=== PATIENT | male | born 1955 | race Caucasian/White ===

== ENCOUNTER 2021-09-07 08:53 | Inpatient (IN) ==
[2021-09-07 09:21] LABS: Basophils % 0.1 % (0.0-0.8); Hematocrit 48.2 VOL% (42.0-52.0); Hemoglobin 16.1 GM/DL (14.0-18.0); Immature Granulocytes % 0.5 %; Immature Granulocytes Absolute 0.08 #; Lymphocytes # 1.1 10*3/uL (1.4-4.0); Lymphocytes % 6.1 % (21.2-54.2); Mean Corpuscular HGB Conc 33.4 GM/DL (32-36); Mean Corpuscular Volume 96.2 FL (87-102); Mean Platelet Volume 8.8 FL (9.6-12.0); Monocytes % 4.5 % (1.7-12.7); Neutrophils % 88.8 % (38.7-73.9); Platelet Count 270 T/CUMM (130-400); Red Blood Count 5.01 MC/CUMM (3.8-5.5); Red Cell Distribution Width 12.7 % (9.3-17.3); White Blood Count 17.2 T/CUMM (4-12)
[2021-09-07 09:56] LABS: Albumin 4.6 G/DL (3.4-5.0); Calcium 9.7 MG/DL (8.5-10.1); Osmolality,Calculated 281.1 MOS/KG (273-304); Potassium 4.6 MMOL/L (3.5-5.1); Total Protein 8.2 G/DL (6.4-8.2)
[2021-09-07] MEDS ORDERED: ENOXAPARIN 100 MG/ML SYRINGE SUBCUT STA (11:11)
[2021-09-07] MEDS ORDERED: MORPHINE 2 MG/1 ML SYRINGE IV STA (11:11)
[2021-09-07] MEDS ORDERED: ASPIRIN 325 MG TABLET PO STA (11:11)
[2021-09-07] MEDS ORDERED: NITROGLYCERIN SL 0.4 MG TABLET SL PRN (11:11)
[2021-09-07] MEDS ORDERED: ONDANSETRON 4 MG/2 ML VIAL ONE (11:15)
[2021-09-07] MEDS ORDERED: HEPARIN 1,000 UNIT/1 ML VIAL IV STA (11:21)
[2021-09-07] MEDS ORDERED: ONDANSETRON 4 MG/2 ML VIAL IV STA (11:25)
[2021-09-07] MEDS ORDERED: cefTRIAXone 1,000 MG in SODIUM CHLORIDE 0.9% 100 ML IV STA (11:25)
[2021-09-07] MEDS ORDERED: cefTRIAXone 1,000 MG VIAL ONE (11:26)
[2021-09-07] MEDS ORDERED: HEPARIN 5,000 UNIT/1 ML VIAL ONE ×3 (11:26→12:02)
[2021-09-07] MEDS ORDERED: CLOPIDOGREL 300 MG TABLET PO STA (11:33)
[2021-09-07] MEDS ORDERED: CLOPIDOGREL 300 MG TABLET ONE (11:34)
[2021-09-07] MEDS ORDERED: HEPARIN/NACL 0.9% 2 UNITS/ML 2,000 UNIT/1,000 ML BAG IV ONE (11:35)
[2021-09-07] MEDS ORDERED: LIDOCAINE 1% 20 ML VIAL ONE (11:35)
[2021-09-07] MEDS ORDERED: hydrALAZINE 20 MG/1 ML VIAL IV PRN (11:47)
[2021-09-07] MEDS ORDERED: POTASSIUM CHLORIDE RIDER 10 MEQ/100 ML PREMIX IV PRN (11:47)
[2021-09-07] MEDS ORDERED: ONDANSETRON 4 MG/2 ML VIAL IV PRN (11:47)
[2021-09-07] MEDS ORDERED: ACETAMINOPHEN 325 MG TABLET PO PRN (11:47)
[2021-09-07] MEDS ORDERED: diphenhydrAMINE CAP 25 MG CAPSULE PO PRN (11:47)
[2021-09-07] MEDS ORDERED: MAGNESIUM SULF RIDER 4 GM/100 ML PREMIX IV PRN (11:47)
[2021-09-07] MEDS ORDERED: ZALEPLON 5 MG CAPSULE PO PRN (11:47)
[2021-09-07] MEDS ORDERED: ALUMINUM/MAGNES/SIMETH MAX STR 30 ML UDCUP PO PRN (11:47)
[2021-09-07] MEDS ORDERED: MAGNESIUM SULF RIDER 2 GM/50 ML PREMIX IV PRN ×2 (11:47)
[2021-09-07] MEDS ORDERED: guaiFENesin/DM ER 600-30 MG TABLET PO PRN (11:47)
[2021-09-07] MEDS ORDERED: NICOTINE 21 MG/24 HR PATCH TRANSDERM PRN (11:47)
[2021-09-07] MEDS ORDERED: PROMETHAZINE 25 MG TABLET PO PRN (11:47)
[2021-09-07] MEDS ORDERED: DOCUSATE SODIUM 100 MG CAPSULE PO PRN (11:47)
[2021-09-07] MEDS ORDERED: MORPHINE 2 MG/1 ML SYRINGE IV PRN (11:47)
[2021-09-07] MEDS ORDERED: NITROGLYCERIN DRIP 50 MG/250 ML BOTTLE IV ONE (11:50)
[2021-09-07] MEDS ORDERED: methylPREDNISolone SOD SUC 125 MG/2 ML VIAL ONE (11:50)
[2021-09-07] MEDS ORDERED: diphenhydrAMINE 50 MG/1 ML VIAL ONE (11:50)
[2021-09-07] MEDS ORDERED: FAMOTIDINE 20 MG/2 ML VIAL IV ONE (11:55)
[2021-09-07] MEDS ORDERED: MIDAZOLAM 2 MG/2 ML VIAL ONE (11:56)
[2021-09-07] MEDS ORDERED: fentaNYL 100 MCG/2 ML VIAL ONE (11:56)
[2021-09-07] MEDS ORDERED: HEPARIN/NACL 0.9% 2 UNITS/ML 1,000 UNIT/500 ML BAG IV ONE (12:06)
[2021-09-07] MEDS ORDERED: AZITHROMYCIN 250 MG TABLET PO ONE (12:07)
[2021-09-07] MEDS ORDERED: ALBUTEROL/IPRATROPIUM 3 ML NEB RESP TX PRN (12:07)
[2021-09-07] MEDS ORDERED: EPTIFIBATIDE 75 MG/100 ML BOTTLE IV SCH (12:15)
[2021-09-07] MEDS ORDERED: NOREPINEPHRINE 4 MG/4 ML VIAL IV ONE ×2 (12:30→12:32)
[2021-09-07] MEDS ORDERED: EPTIFIBATIDE 75 MG/100 ML BOTTLE IV ONE (12:30)
[2021-09-07] MEDS ORDERED: EPTIFIBATIDE 20,000 MCG/10 ML VIAL ONE (12:30)
[2021-09-07] MEDS ORDERED: FUROSEMIDE 40 MG/4 ML VIAL ONE (12:35)
[2021-09-07] MEDS ORDERED: NITROPRUSSIDE 50 MG/2 ML VIAL ONE (12:47)
[2021-09-07 13:09] LABS: Bilirubin,Urine Negative (Negative); Blood, Urine Negative (Negative); Glucose,Urine (UA) Negative (Negative); Hyaline Casts,Urine 85 /LPF (0-3); Ketones,Urine 5 mg/dL (Negative); Mucus,Urine Few /LPF (Occasional); Nitrite,Urine Negative (Negative); Protein,Urine Negative; RBC,Urine 1 /HPF (0-4); Urine Appearance Slightly Hazy (Clear); Urine Color Yellow (Yellow); Urine Specific Gravity 1.031 (1.001-1.035); Urine Urobilinogen < 2.0 EU/DL (0.2-1.0)
[2021-09-07] MEDS: SODIUM CHLORIDE 0.45% 1,000 ML IV SCH ×3 (14:30→21:16)
[2021-09-07] MEDS: ATORVASTATIN 40 MG TABLET PO SCH (21:17)
[2021-09-08] MEDS: SODIUM CHLORIDE 0.45% 1,000 ML IV SCH (03:13)
[2021-09-08 06:35] LABS: Basophils % 0.1 % (0.0-0.8); Hematocrit 42.5 VOL% (42.0-52.0); Hemoglobin 14.4 GM/DL (14.0-18.0); Immature Granulocytes % 0.9 %; Immature Granulocytes Absolute 0.23 #; Lymphocytes # 0.9 10*3/uL (1.4-4.0); Lymphocytes % 3.5 % (21.2-54.2); Mean Corpuscular HGB Conc 33.9 GM/DL (32-36); Mean Platelet Volume 9.7 FL (9.6-12.0); Monocytes % 7.1 % (1.7-12.7); Neutrophils % 88.4 % (38.7-73.9); Platelet Count 217 T/CUMM (130-400); Red Blood Count 4.38 MC/CUMM (3.8-5.5); Red Cell Distribution Width 12.8 % (9.3-17.3); White Blood Count 26.9 T/CUMM (4-12)
[2021-09-08 07:05] LABS: Anisocytosis Slight; Band Neutrophils 9 % (0-10); Lymphocytes 10 % (20-55); Platelet Estimate Normal; Segmented Neutrophils 74 % (50-85); Total Cells Counted 100
[2021-09-08 07:16] LABS: Albumin 3.1 G/DL (3.4-5.0); CKMB % 15.4 %; Calcium 8.4 MG/DL (8.5-10.1); Osmolality,Calculated 278.1 MOS/KG (273-304); Potassium 4.3 MMOL/L (3.5-5.1); Risk Ratio 4.59; Thyroid Stimulating Hormone 1.13 uIU/ml (0.358-3.74); Total Protein 6.4 G/DL (6.4-8.2); VLDL Cholesterol 30.8 MG/DL
[2021-09-08 07:20] LABS: High Sensitive Troponin I* 92981.8 ng/L (0-78)
[2021-09-08] MEDS: ASPIRIN EC 81 MG TABLET PO SCH (08:48)
[2021-09-08] MEDS: TICAGRELOR 90 MG TABLET PO SCH ×2 (08:48→20:49)
[2021-09-08] MEDS: FUROSEMIDE 40 MG/4 ML VIAL IV SCH ×2 (08:48→18:00)
[2021-09-08] MEDS: PANTOPRAZOLE 40 MG TABLET PO SCH (08:48)
[2021-09-08] MEDS ORDERED: AZITHROMYCIN 250 MG TABLET PO SCH (09:00)
[2021-09-08 09:28] LABS: ABG Base Excess 0.2 MMOL/L (-2.5-2.5); ABG HCO3 24.5 MMOL/L (20-26); ABG Oxygen Saturation 92.6 % (95-100); ABG PCO2 33.8 MM HG (35-48); ABG PH 7.449 (7.35-7.45); ABG PO2 66.4 MM HG (80-95); ABG TCO2 19.9 MMOL/L (23-27)
[2021-09-08] MEDS: methylPREDNISolone SOD SUC 40 MG/1 ML VIAL IV SCH ×3 (11:15→23:17)
[2021-09-08] MEDS: cefTRIAXone 2,000 MG in SODIUM CHLORIDE 0.9% 100 ML IV SCH (11:15)
[2021-09-08] MEDS: AZITHROMYCIN INJ 500 MG in SODIUM CHLORIDE 0.9% 250 ML IV SCH (11:45)
[2021-09-08 11:46] LABS: HIV Antigen/Antibody Result Nonreactive (Nonreactive)
[2021-09-08] MEDS: ATORVASTATIN 40 MG TABLET PO SCH (20:49)
[2021-09-09] MEDS: methylPREDNISolone SOD SUC 40 MG/1 ML VIAL IV SCH ×4 (05:46→22:52)
[2021-09-09 06:04] LABS: Basophils % 0.1 % (0.0-0.8); Hematocrit 38.6 VOL% (42.0-52.0); Hemoglobin 12.9 GM/DL (14.0-18.0); Immature Granulocytes % 0.9 %; Immature Granulocytes Absolute 0.19 #; Lymphocytes # 0.7 10*3/uL (1.4-4.0); Lymphocytes % 3.3 % (21.2-54.2); Mean Corpuscular HGB Conc 33.4 GM/DL (32-36); Mean Corpuscular Volume 97.2 FL (87-102); Monocytes % 5.2 % (1.7-12.7); Neutrophils % 90.5 % (38.7-73.9); Platelet Count 176 T/CUMM (130-400); Red Blood Count 3.97 MC/CUMM (3.8-5.5); Red Cell Distribution Width 12.4 % (9.3-17.3); White Blood Count 21.4 T/CUMM (4-12)
[2021-09-09 06:27] LABS: Band Neutrophils 2 % (0-10); Lymphocytes 4 % (20-55); Platelet Estimate Normal; Segmented Neutrophils 93 % (50-85); Total Cells Counted 100
[2021-09-09 06:43] LABS: CKMB % 5.5 %; Calcium 8.9 MG/DL (8.5-10.1); Osmolality,Calculated 280.2 MOS/KG (273-304); Potassium 3.9 MMOL/L (3.5-5.1)
[2021-09-09 06:44] LABS: High Sensitive Troponin I* 43401.7 ng/L (0-78)
[2021-09-09 07:44] LABS: Bilirubin,Direct 0.22 MG/DL (0.0-0.20); Bilirubin,Indirect 0.8 MG/DL (0.0-1.0); Total Protein 6.5 G/DL (6.4-8.2)
[2021-09-09] MEDS: TICAGRELOR 90 MG TABLET PO SCH ×2 (08:22→20:42)
[2021-09-09] MEDS: PANTOPRAZOLE 40 MG TABLET PO SCH (08:22)
[2021-09-09] MEDS: ASPIRIN EC 81 MG TABLET PO SCH (08:22)
[2021-09-09] MEDS: FUROSEMIDE 40 MG/4 ML VIAL IV SCH (08:23)
[2021-09-09] MEDS: cefTRIAXone 2,000 MG in SODIUM CHLORIDE 0.9% 100 ML IV SCH (11:22)
[2021-09-09] MEDS: POTASSIUM CHLORIDE 20 MEQ TABLET PO PRN (11:24)
[2021-09-09] MEDS: AZITHROMYCIN INJ 500 MG in SODIUM CHLORIDE 0.9% 250 ML IV SCH (11:54)
[2021-09-09 13:36] LABS: Mycoplasma pneumoniae Ab Inter SEE COMMENTS; Mycoplasma pneumoniae Ab, IgG Positive (Negative); Mycoplasma pneumoniae Ab, IgM Negative (Negative)
[2021-09-09] MEDS: ATORVASTATIN 40 MG TABLET PO SCH (20:42)
[2021-09-10 03:44] LABS: Basophils % 0.1 % (0.0-0.8); Hematocrit 37.2 VOL% (42.0-52.0); Hemoglobin 12.5 GM/DL (14.0-18.0); Immature Granulocytes Absolute 0.18 #; Lymphocytes # 0.7 10*3/uL (1.4-4.0); Lymphocytes % 3.9 % (21.2-54.2); Mean Corpuscular HGB Conc 33.6 GM/DL (32-36); Mean Corpuscular Volume 98.2 FL (87-102); Mean Platelet Volume 9.9 FL (9.6-12.0); Monocytes % 5.7 % (1.7-12.7); Neutrophils % 89.3 % (38.7-73.9); Platelet Count 174 T/CUMM (130-400); Red Blood Count 3.79 MC/CUMM (3.8-5.5); Red Cell Distribution Width 12.6 % (9.3-17.3); White Blood Count 18.3 T/CUMM (4-12)
[2021-09-10 04:07] LABS: Band Neutrophils 2 % (0-10); Lymphocytes 4 % (20-55); Segmented Neutrophils 89 % (50-85); Total Cells Counted 100
[2021-09-10 04:08] LABS: Macrocytosis Slight; Platelet Estimate Adequate
[2021-09-10 04:11] LABS: CKMB % 3.4 %; Calcium 8.7 MG/DL (8.5-10.1); Osmolality,Calculated 286.8 MOS/KG (273-304); Potassium 3.9 MMOL/L (3.5-5.1)
[2021-09-10 04:13] LABS: High Sensitive Troponin I* 26710.7 ng/L (0-78)
[2021-09-10] MEDS: methylPREDNISolone SOD SUC 40 MG/1 ML VIAL IV SCH ×3 (04:49→20:45)
[2021-09-10] MEDS: METOPROLOL TARTRATE 25 MG TABLET PO SCH ×2 (09:52→20:44)
[2021-09-10] MEDS: ASPIRIN EC 81 MG TABLET PO SCH (09:52)
[2021-09-10] MEDS: PANTOPRAZOLE 40 MG TABLET PO SCH (09:53)
[2021-09-10] MEDS: ISOSORBIDE MONONITRATE 30 MG TABLET PO SCH (09:53)
[2021-09-10] MEDS: TICAGRELOR 90 MG TABLET PO SCH ×2 (09:53→20:44)
[2021-09-10] MEDS: CETIRIZINE 10 MG TABLET PO SCH (09:53)
[2021-09-10] MEDS ORDERED: FUROSEMIDE 40 MG/4 ML VIAL IV ONE (10:05)
[2021-09-10] MEDS: POTASSIUM CHLORIDE 20 MEQ TABLET PO PRN (11:13)
[2021-09-10] MEDS: cefTRIAXone 2,000 MG in SODIUM CHLORIDE 0.9% 100 ML IV SCH (11:16)
[2021-09-10] MEDS: AZITHROMYCIN INJ 500 MG in SODIUM CHLORIDE 0.9% 250 ML IV SCH (11:52)
[2021-09-10] MEDS: ATORVASTATIN 40 MG TABLET PO SCH (20:44)
[2021-09-11 05:00] LABS: ABG HCO3 26.1 MMOL/L (20-26); ABG Oxygen Saturation 90.2 % (95-100); ABG PCO2 33.1 MM HG (35-48); ABG PH 7.485 (7.35-7.45); ABG PO2 61.3 MM HG (80-95); ABG TCO2 22.1 MMOL/L (23-27); Allen Test Positive
[2021-09-11 07:12] LABS: Basophils % 0.1 % (0.0-0.8); Hematocrit 35.7 VOL% (42.0-52.0); Hemoglobin 11.8 GM/DL (14.0-18.0); Immature Granulocytes % 0.9 %; Immature Granulocytes Absolute 0.15 #; Lymphocytes # 0.8 10*3/uL (1.4-4.0); Lymphocytes % 4.6 % (21.2-54.2); Mean Corpuscular HGB Conc 33.1 GM/DL (32-36); Mean Corpuscular Volume 97.8 FL (87-102); Mean Platelet Volume 10.4 FL (9.6-12.0); Monocytes % 5.7 % (1.7-12.7); Neutrophils % 88.7 % (38.7-73.9); Platelet Count 199 T/CUMM (130-400); Red Blood Count 3.65 MC/CUMM (3.8-5.5); Red Cell Distribution Width 12.7 % (9.3-17.3); White Blood Count 16.6 T/CUMM (4-12)
[2021-09-11 07:42] LABS: CKMB % 3.2 %; Calcium 8.5 MG/DL (8.5-10.1); High Sensitive Troponin I* 17170.1 ng/L (0-78); Potassium 3.4 MMOL/L (3.5-5.1)
[2021-09-11] MEDS ORDERED: POTASSIUM CHLORIDE 20 MEQ TABLET PO ONE (07:46)
[2021-09-11 07:57] LABS: Lymphocytes 5 % (20-55); Segmented Neutrophils 89 % (50-85); Total Cells Counted 100
[2021-09-11 07:58] LABS: Platelet Estimate Adequate
[2021-09-11] MEDS: APIXABAN 5 MG TABLET PO SCH ×2 (10:04→20:09)
[2021-09-11] MEDS: METOPROLOL TARTRATE 25 MG TABLET PO SCH ×2 (10:04→20:08)
[2021-09-11] MEDS: ASPIRIN EC 81 MG TABLET PO SCH (10:04)
[2021-09-11] MEDS: TICAGRELOR 90 MG TABLET PO SCH ×2 (10:04→20:08)
[2021-09-11] MEDS: ISOSORBIDE MONONITRATE 30 MG TABLET PO SCH (10:05)
[2021-09-11] MEDS: CETIRIZINE 10 MG TABLET PO SCH (10:05)
[2021-09-11] MEDS: PANTOPRAZOLE 40 MG TABLET PO SCH (10:05)
[2021-09-11] MEDS: methylPREDNISolone SOD SUC 40 MG/1 ML VIAL IV SCH (10:08)
[2021-09-11] MEDS: MEROPENEM 500 MG in SODIUM CHLORIDE 0.9% 100 ML IV SCH ×3 (10:09→20:09)
[2021-09-11] MEDS: AZITHROMYCIN INJ 500 MG in SODIUM CHLORIDE 0.9% 250 ML IV SCH (11:30)
[2021-09-11 12:26] LABS: Fungitell Quantitative Value < 31 pg/mL (<60 pg/mL)
[2021-09-11] MEDS: predniSONE 20 MG TABLET PO SCH (15:12)
[2021-09-11] MEDS: ATORVASTATIN 40 MG TABLET PO SCH (20:08)
[2021-09-12] MEDS: MEROPENEM 500 MG in SODIUM CHLORIDE 0.9% 100 ML IV SCH ×4 (02:36→22:09)
[2021-09-12] MEDS: PANTOPRAZOLE 40 MG TABLET PO SCH (08:51)
[2021-09-12] MEDS: TICAGRELOR 90 MG TABLET PO SCH ×2 (08:51→22:08)
[2021-09-12] MEDS: ISOSORBIDE MONONITRATE 30 MG TABLET PO SCH (08:51)
[2021-09-12] MEDS: CETIRIZINE 10 MG TABLET PO SCH (08:51)
[2021-09-12] MEDS: APIXABAN 5 MG TABLET PO SCH ×2 (08:52→22:08)
[2021-09-12] MEDS: METOPROLOL TARTRATE 25 MG TABLET PO SCH ×2 (08:52→22:09)
[2021-09-12] MEDS: predniSONE 20 MG TABLET PO SCH (08:52)
[2021-09-12] MEDS: POTASSIUM CHLORIDE 20 MEQ TABLET PO PRN ×3 (08:52→17:54)
[2021-09-12] MEDS: ASPIRIN EC 81 MG TABLET PO SCH (08:52)
[2021-09-12] MEDS: CLORAZEPATE 3.75 MG TABLET PO PRN ×2 (10:39→17:55)
[2021-09-12] MEDS: AZITHROMYCIN INJ 500 MG in SODIUM CHLORIDE 0.9% 250 ML IV SCH (10:40)
[2021-09-12] MEDS: ATORVASTATIN 40 MG TABLET PO SCH (22:08)
[2021-09-12] MEDS: SERTRALINE 25 MG TABLET PO SCH (22:09)
[2021-09-13] MEDS: CLORAZEPATE 3.75 MG TABLET PO PRN (02:31)
[2021-09-13] MEDS: MEROPENEM 500 MG in SODIUM CHLORIDE 0.9% 100 ML IV SCH ×3 (05:00→15:58)
[2021-09-13] MEDS: predniSONE 5 MG TABLET PO SCH (09:35)
[2021-09-13] MEDS: PANTOPRAZOLE 40 MG TABLET PO SCH (09:35)
[2021-09-13] MEDS: TICAGRELOR 90 MG TABLET PO SCH (09:35)
[2021-09-13] MEDS: APIXABAN 5 MG TABLET PO SCH (09:35)
[2021-09-13] MEDS: ASPIRIN EC 81 MG TABLET PO SCH (09:35)
[2021-09-13] MEDS: ISOSORBIDE MONONITRATE 30 MG TABLET PO SCH (09:35)
[2021-09-13] MEDS: METOPROLOL TARTRATE 25 MG TABLET PO SCH (09:35)
[2021-09-13] MEDS: CETIRIZINE 10 MG TABLET PO SCH (09:35)
[2021-09-13] MEDS: AZITHROMYCIN INJ 500 MG in SODIUM CHLORIDE 0.9% 250 ML IV SCH (10:28)
[2021-09-13] MEDS ORDERED: MELATONIN 3 MG TABLET PO SCH (21:00)
[2021-09-14] MEDS: ATORVASTATIN 40 MG TABLET PO SCH (00:08)
[2021-09-14] MEDS: APIXABAN 5 MG TABLET PO SCH ×2 (00:08→08:01)
[2021-09-14] MEDS: METOPROLOL TARTRATE 25 MG TABLET PO SCH ×2 (00:08→08:01)
[2021-09-14] MEDS: SERTRALINE 25 MG TABLET PO SCH (00:08)
[2021-09-14] MEDS: TICAGRELOR 90 MG TABLET PO SCH ×2 (00:08→08:02)
[2021-09-14] MEDS: MEROPENEM 500 MG in SODIUM CHLORIDE 0.9% 100 ML IV SCH ×3 (00:09→08:07)
[2021-09-14 06:31] LABS: Basophils % 0.1 % (0.0-0.8); Eosinophils % 0.1 % (0.00-10.9); Hematocrit 34.4 VOL% (42.0-52.0); Hemoglobin 11.3 GM/DL (14.0-18.0); Immature Granulocytes % 1.8 %; Immature Granulocytes Absolute 0.35 #; Lymphocytes # 1.1 10*3/uL (1.4-4.0); Lymphocytes % 5.7 % (21.2-54.2); Mean Corpuscular HGB Conc 32.8 GM/DL (32-36); Mean Corpuscular Volume 98.6 FL (87-102); Monocytes % 3.1 % (1.7-12.7); Neutrophils % 89.2 % (38.7-73.9); Platelet Count 203 T/CUMM (130-400); Red Blood Count 3.49 MC/CUMM (3.8-5.5); White Blood Count 19.7 T/CUMM (4-12)
[2021-09-14 06:59] LABS: Blood Urea Nitrogen 25 MG/DL (7-18); Calcium 8.3 MG/DL (8.5-10.1); Carbon Dioxide 23 MMOL/L (21-32); Estimated Glom Filtration Rate 105 ML/MIN; Glucose 122 MG/DL (74-106); Potassium 3.8 MMOL/L (3.5-5.1); Sodium 136 MMOL/L (136-145)
[2021-09-14] MEDS: ISOSORBIDE MONONITRATE 30 MG TABLET PO SCH (08:01)
[2021-09-14] MEDS: CETIRIZINE 10 MG TABLET PO SCH (08:01)
[2021-09-14] MEDS: ASPIRIN EC 81 MG TABLET PO SCH (08:02)
[2021-09-14] MEDS: predniSONE 5 MG TABLET PO SCH (08:02)
[2021-09-14] MEDS: PANTOPRAZOLE 40 MG TABLET PO SCH (08:02)
[2021-09-14] MEDS: AZITHROMYCIN INJ 500 MG in SODIUM CHLORIDE 0.9% 250 ML IV SCH (10:39)
[2021-09-14 12:42] VITALS: BP 111/93
[2021-09-16 14:28] LABS: Histo/Blasto PCR Result Negative; Histo/Blasto Source SPUTUM
[2021-09-16 15:46] LABS: Histoplasma Immnodiffusion Negative (Negative)
[2021-09-17 10:10] LABS: Alternaria tenuis/alternat IgG <2.0 mcg/mL (<12.0); Aspergillus fumigatus IgG 23.1 mcg/mL (<46.0); Aureobasidium pullulans IgG <2.0 mcg/mL (<18.0); Micropolyspora faeni IgG <2.0 mcg/mL (<5.0); Penicillium Chrysogenum IgG 19.5 mcg/mL (<22.0); Phoma betae IgG 5.6 mcg/mL (<8.0); Thermoactinomyces vulgaris IgG 3.7 mcg/mL (<13.0)
== END 2021-09-14 13:30 | disposition home health service (06) | DRG 246 ==
LOC: N.ED 08:53 → N.ICU 11:42 → N.EDINP 11:47 → N.ICU 14:02 → N.TELES 09-09 14:51
PROVIDERS: ADMIT Internal Medicine Cardiovascular Disease; ATTEND Internal Medicine Cardiovascular Disease
PROC: CLCCHCL (ICD-10-PCS; 2021-09-07 12:00)

== ENCOUNTER 2021-09-17 01:20 | Inpatient (IN) ==
[2021-09-17 01:47] LABS: Basophils % 0.2 % (0.0-0.8); Eosinophils # 0.1 10*3/uL (0.0-0.87); Eosinophils % 0.2 % (0.00-10.9); Hematocrit 38.4 VOL% (42.0-52.0); Hemoglobin 12.2 GM/DL (14.0-18.0); Immature Granulocytes % 1.9 %; Immature Granulocytes Absolute 0.51 #; Lymphocytes # 1.1 10*3/uL (1.4-4.0); Lymphocytes % 4.3 % (21.2-54.2); Mean Corpuscular HGB Conc 31.8 GM/DL (32-36); Mean Corpuscular Volume 101.3 FL (87-102); Mean Platelet Volume 9.6 FL (9.6-12.0); Monocytes % 4.3 % (1.7-12.7); Neutrophils % 89.1 % (38.7-73.9); Platelet Count 349 T/CUMM (130-400); Red Blood Count 3.79 MC/CUMM (3.8-5.5); Red Cell Distribution Width 13.2 % (9.3-17.3); White Blood Count 26.4 T/CUMM (4-12)
[2021-09-17] MEDS ORDERED: methylPREDNISolone SOD SUC 125 MG/2 ML VIAL IV STA (01:48)
[2021-09-17] MEDS ORDERED: MORPHINE 2 MG/1 ML SYRINGE IV STA (01:48)
[2021-09-17] MEDS ORDERED: ALBUTEROL/IPRATROPIUM 3 ML NEB RESP TX STA (01:48)
[2021-09-17] MEDS ORDERED: FUROSEMIDE 100 MG/10 ML VIAL IV STA (01:48)
[2021-09-17 02:05] LABS: ABG Base Excess -4.1 MMOL/L (-2.5-2.5); ABG HCO3 20.8 MMOL/L (20-26); ABG Oxygen Saturation 84.7 % (95-100); ABG PCO2 34.6 MM HG (35-48); ABG PH 7.378 (7.35-7.45); ABG PO2 55.9 MM HG (80-95)
[2021-09-17 02:11] LABS: INR 1.3; PT Patient Result 14.3 SECS (10.5-12.0)
[2021-09-17 02:22] LABS: Albumin 2.6 G/DL (3.4-5.0); Bilirubin,Total 1.2 MG/DL (0.20-1.00); Calcium 8.2 MG/DL (8.5-10.1); Lymphocytes 11 % (20-55); Osmolality,Calculated 293.3 MOS/KG (273-304); Platelet Estimate Normal; Potassium 4.5 MMOL/L (3.5-5.1); Segmented Neutrophils 86 % (50-85); Total Cells Counted 100; Total Protein 5.4 G/DL (6.4-8.2)
[2021-09-17] MEDS ORDERED: MORPHINE 2 MG/1 ML SYRINGE IV PRN (02:53)
[2021-09-17] MEDS ORDERED: ACETAMINOPHEN 325 MG TABLET PO PRN (02:53)
[2021-09-17] MEDS ORDERED: GLUCAGON 1 MG VIAL IM PRN (02:53)
[2021-09-17] MEDS ORDERED: DEXTROSE 50% 25 GM/50 ML SYRINGE IV PRN (02:53)
[2021-09-17] MEDS ORDERED: MAGNESIUM SULF RIDER 2 GM/50 ML PREMIX IV PRN (02:53)
[2021-09-17] MEDS ORDERED: ONDANSETRON 4 MG/2 ML VIAL IV PRN (02:53)
[2021-09-17] MEDS ORDERED: DEXTROSE 50% 25 GM/50 ML VIAL IV PRN (02:53)
[2021-09-17] MEDS ORDERED: MAGNESIUM SULF RIDER 4 GM/100 ML PREMIX IV PRN (02:53)
[2021-09-17] MEDS ORDERED: MEROPENEM 1,000 MG VIAL IV SCH (07:00)
[2021-09-17] MEDS: ALBUTEROL/IPRATROPIUM 3 ML NEB RESP TX SCH ×3 (07:15→19:10)
[2021-09-17] MEDS ORDERED: INSULIN REGULAR 100 UNIT/ML SUBCUT SCH (07:30)
[2021-09-17] MEDS ORDERED: FUROSEMIDE 40 MG/4 ML VIAL IV SCH ×2 (08:00→16:00)
[2021-09-17] MEDS ORDERED: CETIRIZINE 10 MG TABLET PO SCH (09:00)
[2021-09-17] MEDS ORDERED: predniSONE 5 MG TABLET PO SCH (09:00)
[2021-09-17] MEDS: PANTOPRAZOLE 40 MG TABLET PO SCH (09:38)
[2021-09-17] MEDS: ASPIRIN CHEW 81 MG TABLET PO SCH (09:38)
[2021-09-17] MEDS: ISOSORBIDE MONONITRATE 30 MG TABLET PO SCH (09:38)
[2021-09-17] MEDS: TICAGRELOR 90 MG TABLET PO SCH ×2 (09:38→20:10)
[2021-09-17] MEDS: APIXABAN 5 MG TABLET PO SCH ×2 (09:39→20:10)
[2021-09-17] MEDS: predniSONE 20 MG TABLET PO SCH (09:39)
[2021-09-17] MEDS: METOPROLOL TARTRATE 25 MG TABLET PO SCH ×2 (09:45→20:09)
[2021-09-17] MEDS: MEROPENEM 500 MG in SODIUM CHLORIDE 0.9% 100 ML IV SCH ×3 (10:18→20:31)
[2021-09-17] MEDS ORDERED: FUROSEMIDE 40 MG/4 ML VIAL IV ONE (11:01)
[2021-09-17] MEDS: FUROSEMIDE 40 MG/4 ML VIAL IV SCH (16:08)
[2021-09-17] MEDS: ATORVASTATIN 40 MG TABLET PO SCH (20:09)
[2021-09-17] MEDS: SERTRALINE 25 MG TABLET PO SCH (20:10)
[2021-09-18] MEDS: ALBUTEROL/IPRATROPIUM 3 ML NEB RESP TX SCH ×4 (00:29→19:48)
[2021-09-18] MEDS: MEROPENEM 500 MG in SODIUM CHLORIDE 0.9% 100 ML IV SCH ×4 (03:54→20:44)
[2021-09-18 05:10] LABS: Basophils % 0.1 % (0.0-0.8); Hematocrit 32.6 VOL% (42.0-52.0); Hemoglobin 10.6 GM/DL (14.0-18.0); Lymphocytes # 1.1 10*3/uL (1.4-4.0); Lymphocytes % 5.5 % (21.2-54.2); Mean Corpuscular HGB Conc 32.5 GM/DL (32-36); Mean Corpuscular Volume 98.8 FL (87-102); Mean Platelet Volume 9.7 FL (9.6-12.0); Monocytes % 4.6 % (1.7-12.7); Neutrophils % 88.8 % (38.7-73.9); Platelet Count 274 T/CUMM (130-400); Red Cell Distribution Width 13.2 % (9.3-17.3); White Blood Count 20.1 T/CUMM (4-12)
[2021-09-18 05:36] LABS: Hypochromasia Slight; Lymphocytes 7 % (20-55); Microcytosis Slight; Platelet Estimate Adequate; Segmented Neutrophils 89 % (50-85); Total Cells Counted 100
[2021-09-18 05:38] LABS: Albumin 2.4 G/DL (3.4-5.0); Bilirubin,Total 1.2 MG/DL (0.20-1.00); Osmolality,Calculated 289.4 MOS/KG (273-304); Potassium 3.6 MMOL/L (3.5-5.1); Total Protein 5.6 G/DL (6.4-8.2)
[2021-09-18] MEDS: ASPIRIN CHEW 81 MG TABLET PO SCH (08:39)
[2021-09-18] MEDS: APIXABAN 5 MG TABLET PO SCH ×2 (08:40→20:42)
[2021-09-18] MEDS: TICAGRELOR 90 MG TABLET PO SCH ×2 (08:40→20:42)
[2021-09-18] MEDS: PANTOPRAZOLE 40 MG TABLET PO SCH (08:40)
[2021-09-18] MEDS: predniSONE 20 MG TABLET PO SCH (08:40)
[2021-09-18] MEDS: ISOSORBIDE MONONITRATE 30 MG TABLET PO SCH (08:40)
[2021-09-18] MEDS: METOPROLOL TARTRATE 25 MG TABLET PO SCH ×2 (08:41→20:42)
[2021-09-18] MEDS: FUROSEMIDE 40 MG/4 ML VIAL IV SCH (08:41)
[2021-09-18] MEDS: FUROSEMIDE 40 MG TABLET PO SCH (16:53)
[2021-09-18] MEDS: ATORVASTATIN 40 MG TABLET PO SCH (20:42)
[2021-09-18] MEDS: SERTRALINE 25 MG TABLET PO SCH (20:42)
[2021-09-19] MEDS: ALBUTEROL/IPRATROPIUM 3 ML NEB RESP TX SCH ×5 (01:11→23:45)
[2021-09-19] MEDS: MEROPENEM 500 MG in SODIUM CHLORIDE 0.9% 100 ML IV SCH ×4 (03:19→20:49)
[2021-09-19 05:19] LABS: Basophils % 0.1 % (0.0-0.8); Eosinophils % 0.3 % (0.00-10.9); Hematocrit 32.6 VOL% (42.0-52.0); Hemoglobin 10.3 GM/DL (14.0-18.0); Immature Granulocytes % 0.8 %; Immature Granulocytes Absolute 0.13 #; Lymphocytes # 1.7 10*3/uL (1.4-4.0); Lymphocytes % 10.5 % (21.2-54.2); Mean Corpuscular HGB Conc 31.6 GM/DL (32-36); Mean Corpuscular Volume 101.2 FL (87-102); Mean Platelet Volume 9.4 FL (9.6-12.0); Monocytes % 5.5 % (1.7-12.7); Neutrophils % 82.8 % (38.7-73.9); Platelet Count 254 T/CUMM (130-400); Red Blood Count 3.22 MC/CUMM (3.8-5.5); Red Cell Distribution Width 13.2 % (9.3-17.3); White Blood Count 15.9 T/CUMM (4-12)
[2021-09-19 05:38] LABS: Osmolality,Calculated 285.5 MOS/KG (273-304); Potassium 3.6 MMOL/L (3.5-5.1)
[2021-09-19] MEDS ORDERED: POTASSIUM CHLORIDE 20 MEQ TABLET PO ONE (08:17)
[2021-09-19] MEDS: TICAGRELOR 90 MG TABLET PO SCH ×2 (08:51→20:48)
[2021-09-19] MEDS: FUROSEMIDE 40 MG TABLET PO SCH (08:51)
[2021-09-19] MEDS: APIXABAN 5 MG TABLET PO SCH ×2 (08:51→20:48)
[2021-09-19] MEDS: METOPROLOL TARTRATE 25 MG TABLET PO SCH ×2 (08:51→20:48)
[2021-09-19] MEDS: predniSONE 20 MG TABLET PO SCH (08:51)
[2021-09-19] MEDS: ISOSORBIDE MONONITRATE 30 MG TABLET PO SCH (08:51)
[2021-09-19] MEDS: PANTOPRAZOLE 40 MG TABLET PO SCH (08:51)
[2021-09-19] MEDS: ASPIRIN CHEW 81 MG TABLET PO SCH (08:51)
[2021-09-19] MEDS ORDERED: FUROSEMIDE 40 MG/4 ML VIAL IV ONE (09:18)
[2021-09-19] MEDS: ASCORBIC ACID 500 MG TABLET PO SCH ×2 (09:26→20:48)
[2021-09-19] MEDS: FUROSEMIDE 40 MG/4 ML VIAL IV SCH (16:42)
[2021-09-19] MEDS ORDERED: ALBUTEROL 2.5 MG/3 ML NEB RESP TX ONE (19:48)
[2021-09-19] MEDS ORDERED: IPRATROPIUM 500 MCG/2.5 ML NEB RESP TX ONE (19:48)
[2021-09-19] MEDS: ATORVASTATIN 40 MG TABLET PO SCH (20:48)
[2021-09-19] MEDS: SERTRALINE 25 MG TABLET PO SCH (20:48)
[2021-09-20] MEDS: ALBUTEROL/IPRATROPIUM 3 ML NEB RESP TX SCH ×3 (10:15→20:44)
[2021-09-20 13:30] LABS: Basophils % 0.1 % (0.0-0.8); Eosinophils # 0.1 10*3/uL (0.0-0.87); Eosinophils % 0.5 % (0.00-10.9); Hematocrit 34.4 VOL% (42.0-52.0); Immature Granulocytes % 0.7 %; Immature Granulocytes Absolute 0.11 #; Lymphocytes # 1.9 10*3/uL (1.4-4.0); Lymphocytes % 11.9 % (21.2-54.2); Mean Corpuscular Volume 102.1 FL (87-102); Mean Platelet Volume 9.6 FL (9.6-12.0); Monocytes % 5.7 % (1.7-12.7); Neutrophils % 81.1 % (38.7-73.9); Platelet Count 271 T/CUMM (130-400); Red Blood Count 3.37 MC/CUMM (3.8-5.5); Red Cell Distribution Width 13.3 % (9.3-17.3); White Blood Count 15.5 T/CUMM (4-12)
[2021-09-20 14:09] LABS: Calcium 8.2 MG/DL (8.5-10.1); Osmolality,Calculated 289.3 MOS/KG (273-304); Potassium 4.3 MMOL/L (3.5-5.1)
[2021-09-20] MEDS: FUROSEMIDE 40 MG/4 ML VIAL IV SCH ×2 (16:12→20:01)
[2021-09-20] MEDS: MEROPENEM 500 MG in SODIUM CHLORIDE 0.9% 100 ML IV SCH ×2 (20:01→21:42)
[2021-09-20] MEDS: predniSONE 20 MG TABLET PO SCH (20:02)
[2021-09-20] MEDS: TICAGRELOR 90 MG TABLET PO SCH ×2 (20:02→21:43)
[2021-09-20] MEDS: METOPROLOL TARTRATE 25 MG TABLET PO SCH ×2 (20:02→21:43)
[2021-09-20] MEDS: ASPIRIN CHEW 81 MG TABLET PO SCH (20:02)
[2021-09-20] MEDS: APIXABAN 5 MG TABLET PO SCH ×2 (20:02→21:43)
[2021-09-20] MEDS: PANTOPRAZOLE 40 MG TABLET PO SCH (20:02)
[2021-09-20] MEDS: ISOSORBIDE MONONITRATE 30 MG TABLET PO SCH (20:02)
[2021-09-20] MEDS: ASCORBIC ACID 500 MG TABLET PO SCH ×2 (20:03→21:43)
[2021-09-20] MEDS: ATORVASTATIN 40 MG TABLET PO SCH (21:43)
[2021-09-20] MEDS: SERTRALINE 25 MG TABLET PO SCH (21:43)
[2021-09-21] MEDS: ALBUTEROL/IPRATROPIUM 3 ML NEB RESP TX SCH ×4 (00:43→19:55)
[2021-09-21] MEDS: MEROPENEM 500 MG in SODIUM CHLORIDE 0.9% 100 ML IV SCH ×4 (03:29→22:28)
[2021-09-21 05:15] LABS: Basophils % 0.1 % (0.0-0.8); Eosinophils # 0.1 10*3/uL (0.0-0.87); Eosinophils % 0.5 % (0.00-10.9); Hematocrit 33.9 VOL% (42.0-52.0); Immature Granulocytes % 0.7 %; Immature Granulocytes Absolute 0.11 #; Lymphocytes # 2.2 10*3/uL (1.4-4.0); Lymphocytes % 14.5 % (21.2-54.2); Mean Corpuscular HGB Conc 32.4 GM/DL (32-36); Mean Corpuscular Volume 99.7 FL (87-102); Mean Platelet Volume 9.4 FL (9.6-12.0); Monocytes % 5.5 % (1.7-12.7); Neutrophils % 78.7 % (38.7-73.9); Platelet Count 260 T/CUMM (130-400); Red Cell Distribution Width 13.2 % (9.3-17.3); White Blood Count 15.1 T/CUMM (4-12)
[2021-09-21 05:48] LABS: Calcium 8.3 MG/DL (8.5-10.1); Osmolality,Calculated 284.7 MOS/KG (273-304); Potassium 3.2 MMOL/L (3.5-5.1)
[2021-09-21 05:50] LABS: Albumin 2.6 G/DL (3.4-5.0); Bilirubin,Direct 0.16 MG/DL (0.0-0.20); Bilirubin,Indirect 0.6 MG/DL (0.0-1.0); Bilirubin,Total 0.8 MG/DL (0.20-1.00); Total Protein 5.6 G/DL (6.4-8.2)
[2021-09-21] MEDS ORDERED: POTASSIUM CHLORIDE 20 MEQ TABLET PO ONE (07:43)
[2021-09-21] MEDS: METOPROLOL TARTRATE 25 MG TABLET PO SCH (08:42)
[2021-09-21] MEDS: PANTOPRAZOLE 40 MG TABLET PO SCH (08:42)
[2021-09-21] MEDS: ASCORBIC ACID 500 MG TABLET PO SCH ×2 (08:42→22:27)
[2021-09-21] MEDS: TICAGRELOR 90 MG TABLET PO SCH ×2 (08:43→22:28)
[2021-09-21] MEDS: ASPIRIN CHEW 81 MG TABLET PO SCH (08:43)
[2021-09-21] MEDS: predniSONE 20 MG TABLET PO SCH (08:43)
[2021-09-21] MEDS: APIXABAN 5 MG TABLET PO SCH ×2 (08:43→22:27)
[2021-09-21] MEDS: FUROSEMIDE 40 MG/4 ML VIAL IV SCH (08:47)
[2021-09-21] MEDS: FUROSEMIDE 40 MG TABLET PO SCH (16:31)
[2021-09-21] MEDS: SERTRALINE 25 MG TABLET PO SCH (22:27)
[2021-09-21] MEDS: ATORVASTATIN 40 MG TABLET PO SCH (22:27)
[2021-09-22] MEDS: ALBUTEROL/IPRATROPIUM 3 ML NEB RESP TX SCH ×4 (01:04→19:50)
[2021-09-22] MEDS: MEROPENEM 500 MG in SODIUM CHLORIDE 0.9% 100 ML IV SCH ×2 (03:28→09:24)
[2021-09-22 05:52] LABS: Basophils % 0.1 % (0.0-0.8); Eosinophils # 0.1 10*3/uL (0.0-0.87); Eosinophils % 0.3 % (0.00-10.9); Hematocrit 33.3 VOL% (42.0-52.0); Hemoglobin 10.8 GM/DL (14.0-18.0); Immature Granulocytes % 0.5 %; Immature Granulocytes Absolute 0.07 #; Lymphocytes % 13.4 % (21.2-54.2); Mean Corpuscular HGB Conc 32.4 GM/DL (32-36); Mean Corpuscular Volume 97.7 FL (87-102); Mean Platelet Volume 9.4 FL (9.6-12.0); Monocytes % 5.4 % (1.7-12.7); Neutrophils % 80.3 % (38.7-73.9); Platelet Count 260 T/CUMM (130-400); Red Blood Count 3.41 MC/CUMM (3.8-5.5); Red Cell Distribution Width 13.3 % (9.3-17.3); White Blood Count 14.7 T/CUMM (4-12)
[2021-09-22 06:15] LABS: Calcium 8.1 MG/DL (8.5-10.1); Osmolality,Calculated 282.5 MOS/KG (273-304); Potassium 3.3 MMOL/L (3.5-5.1)
[2021-09-22] MEDS ORDERED: POTASSIUM CHLORIDE 20 MEQ TABLET PO ONE (07:14)
[2021-09-22] MEDS: APIXABAN 5 MG TABLET PO SCH ×2 (09:23→21:07)
[2021-09-22] MEDS: TICAGRELOR 90 MG TABLET PO SCH ×2 (09:23→21:07)
[2021-09-22] MEDS: ASPIRIN CHEW 81 MG TABLET PO SCH (09:23)
[2021-09-22] MEDS: FUROSEMIDE 40 MG TABLET PO SCH ×2 (09:23→15:27)
[2021-09-22] MEDS: ASCORBIC ACID 500 MG TABLET PO SCH ×2 (09:23→21:07)
[2021-09-22] MEDS: predniSONE 20 MG TABLET PO SCH (09:23)
[2021-09-22] MEDS: PANTOPRAZOLE 40 MG TABLET PO SCH (09:23)
[2021-09-22] MEDS: ATORVASTATIN 40 MG TABLET PO SCH (21:07)
[2021-09-22] MEDS: SERTRALINE 25 MG TABLET PO SCH (21:07)
[2021-09-23] MEDS: ALBUTEROL/IPRATROPIUM 3 ML NEB RESP TX SCH ×3 (00:52→13:25)
[2021-09-23 04:48] LABS: Basophils % 0.2 % (0.0-0.8); Eosinophils # 0.1 10*3/uL (0.0-0.87); Eosinophils % 0.4 % (0.00-10.9); Hematocrit 34.1 VOL% (42.0-52.0); Immature Granulocytes % 0.6 %; Immature Granulocytes Absolute 0.07 #; Lymphocytes # 1.9 10*3/uL (1.4-4.0); Lymphocytes % 15.5 % (21.2-54.2); Mean Corpuscular HGB Conc 32.3 GM/DL (32-36); Mean Platelet Volume 9.2 FL (9.6-12.0); Monocytes % 5.8 % (1.7-12.7); Neutrophils % 77.5 % (38.7-73.9); Platelet Count 241 T/CUMM (130-400); Red Blood Count 3.41 MC/CUMM (3.8-5.5); Red Cell Distribution Width 13.4 % (9.3-17.3); White Blood Count 12.3 T/CUMM (4-12)
[2021-09-23 05:33] LABS: Calcium 8.5 MG/DL (8.5-10.1); Osmolality,Calculated 283.4 MOS/KG (273-304); Potassium 3.8 MMOL/L (3.5-5.1)
[2021-09-23] MEDS: ASPIRIN CHEW 81 MG TABLET PO SCH (08:39)
[2021-09-23] MEDS: TICAGRELOR 90 MG TABLET PO SCH (08:40)
[2021-09-23] MEDS: PANTOPRAZOLE 40 MG TABLET PO SCH (08:40)
[2021-09-23] MEDS: APIXABAN 5 MG TABLET PO SCH (08:40)
[2021-09-23] MEDS: ASCORBIC ACID 500 MG TABLET PO SCH (08:40)
[2021-09-23] MEDS: FUROSEMIDE 40 MG TABLET PO SCH (08:40)
[2021-09-23] MEDS: predniSONE 20 MG TABLET PO SCH (08:40)
[2021-09-23] MEDS ORDERED: FUROSEMIDE 40 MG/4 ML VIAL IV ONE (08:53)
[2021-09-23] MEDS ORDERED: METOPROLOL TARTRATE 25 MG TABLET PO SCH (10:00)
[2021-09-23 12:26] VITALS: BP 90/66
== END 2021-09-23 14:14 | disposition home health service (06) | DRG 280 ==
LOC: EDUNIT# → EDBD → EDSEX → N.ED 01:20 → N.EDINP 02:53 → SUATTDRO 02:53 → N.TELES 03:42
PROVIDERS: ADMIT Emergency Medicine; ATTEND Internal Medicine

== ENCOUNTER 2021-10-02 13:12 | Inpatient (IN) ==
[2021-10-02 14:03] LABS: Basophils % 0.3 % (0.0-0.8); Eosinophils # 0.1 10*3/uL (0.0-0.87); Eosinophils % 1.6 % (0.00-10.9); Hematocrit 42.5 VOL% (42.0-52.0); Hemoglobin 13.5 GM/DL (14.0-18.0); Immature Granulocytes % 0.6 %; Immature Granulocytes Absolute 0.04 #; Lymphocytes # 1.6 10*3/uL (1.4-4.0); Lymphocytes % 23.7 % (21.2-54.2); Mean Corpuscular HGB Conc 31.8 GM/DL (32-36); Mean Platelet Volume 9.3 FL (9.6-12.0); Monocytes % 11.3 % (1.7-12.7); Neutrophils % 62.5 % (38.7-73.9); Platelet Count 252 T/CUMM (130-400); Red Blood Count 4.25 MC/CUMM (3.8-5.5); Red Cell Distribution Width 13.6 % (9.3-17.3); White Blood Count 6.8 T/CUMM (4-12)
[2021-10-02 14:15] LABS: INR 1.1; PT Patient Result 12.5 SECS (10.5-12.0)
[2021-10-02 14:42] LABS: Albumin 3.6 G/DL (3.4-5.0); Bilirubin,Total 0.9 MG/DL (0.20-1.00); Calcium 9.2 MG/DL (8.5-10.1); Osmolality,Calculated 277.4 MOS/KG (273-304); Potassium 4.3 MMOL/L (3.5-5.1); Thyroid Stimulating Hormone 2.7 uIU/ml (0.358-3.74)
[2021-10-02] MEDS ORDERED: DILTIAZEM 50 MG/10 ML VIAL IV STA (15:37)
[2021-10-02] MEDS ORDERED: CALCIUM CARBONATE CHEW 500 MG TABLET PO PRN (16:11)
[2021-10-02] MEDS ORDERED: DEXTROSE 50% 25 GM/50 ML SYRINGE IV PRN (16:11)
[2021-10-02] MEDS ORDERED: DOCUSATE SODIUM 100 MG CAPSULE PO PRN (16:11)
[2021-10-02] MEDS ORDERED: ACETAMINOPHEN 325 MG TABLET PO PRN (16:11)
[2021-10-02] MEDS ORDERED: ONDANSETRON 4 MG/2 ML VIAL IV PRN (16:11)
[2021-10-02] MEDS ORDERED: GLUCAGON 1 MG VIAL IM PRN (16:11)
[2021-10-02] MEDS ORDERED: SIMETHICONE CHEW 125 MG TABLET PO PRN (16:11)
[2021-10-02] MEDS ORDERED: DILTIAZEM INJ 100 MG in SODIUM CHLORIDE 0.9% 100 ML IV SCH (16:30)
[2021-10-02] MEDS: PANTOPRAZOLE 40 MG TABLET PO SCH (17:47)
[2021-10-02] MEDS: ASPIRIN EC 81 MG TABLET PO SCH (17:47)
[2021-10-02] MEDS: APIXABAN 5 MG TABLET PO SCH (21:01)
[2021-10-02] MEDS: METOPROLOL TARTRATE 25 MG TABLET PO SCH (21:01)
[2021-10-02] MEDS: TICAGRELOR 90 MG TABLET PO SCH (21:01)
[2021-10-02] MEDS ORDERED: SODIUM CHLORIDE 0.9% 500 ML IV ONE (23:31)
[2021-10-03 05:44] LABS: Basophils % 0.3 % (0.0-0.8); Eosinophils # 0.1 10*3/uL (0.0-0.87); Eosinophils % 1.3 % (0.00-10.9); Hematocrit 37.7 VOL% (42.0-52.0); Hemoglobin 12.2 GM/DL (14.0-18.0); Immature Granulocytes % 0.4 %; Immature Granulocytes Absolute 0.03 #; Lymphocytes # 1.3 10*3/uL (1.4-4.0); Lymphocytes % 18.8 % (21.2-54.2); Mean Corpuscular HGB Conc 32.4 GM/DL (32-36); Mean Corpuscular Volume 100.5 FL (87-102); Mean Platelet Volume 9.6 FL (9.6-12.0); Monocytes % 9.6 % (1.7-12.7); Neutrophils % 69.6 % (38.7-73.9); Platelet Count 206 T/CUMM (130-400); Red Blood Count 3.75 MC/CUMM (3.8-5.5); Red Cell Distribution Width 13.7 % (9.3-17.3); White Blood Count 7.1 T/CUMM (4-12)
[2021-10-03 05:58] LABS: Calcium 8.5 MG/DL (8.5-10.1); Osmolality,Calculated 282.1 MOS/KG (273-304); Potassium 3.9 MMOL/L (3.5-5.1); Risk Ratio 2.71; VLDL Cholesterol 14.2 MG/DL
[2021-10-03 06:29] LABS: Anisocytosis Slight
[2021-10-03] MEDS: ASPIRIN EC 81 MG TABLET PO SCH (09:16)
[2021-10-03] MEDS: PANTOPRAZOLE 40 MG TABLET PO SCH (09:17)
[2021-10-03] MEDS: METOPROLOL TARTRATE 25 MG TABLET PO SCH ×2 (09:17→21:30)
[2021-10-03] MEDS: APIXABAN 5 MG TABLET PO SCH ×2 (09:17→21:30)
[2021-10-03] MEDS: TICAGRELOR 90 MG TABLET PO SCH ×2 (09:17→21:30)
[2021-10-03] MEDS ORDERED: AMIODARONE INJ 150 MG in DEXTROSE 5% 100 ML IV ONE (11:27)
[2021-10-03] MEDS ORDERED: AMIODARONE INJ 450 MG in DEXTROSE 5% 241 ML IV SCH (11:30)
[2021-10-03] MEDS: AMIODARONE INJ 450 MG in DEXTROSE 5% 241 ML IV SCH (21:30)
[2021-10-04 05:23] LABS: Basophils % 0.1 % (0.0-0.8); Eosinophils # 0.1 10*3/uL (0.0-0.87); Eosinophils % 1.6 % (0.00-10.9); Hematocrit 40.5 VOL% (42.0-52.0); Immature Granulocytes % 0.4 %; Immature Granulocytes Absolute 0.03 #; Lymphocytes % 13.5 % (21.2-54.2); Mean Corpuscular HGB Conc 32.1 GM/DL (32-36); Mean Corpuscular Volume 100.2 FL (87-102); Mean Platelet Volume 9.5 FL (9.6-12.0); Monocytes % 7.2 % (1.7-12.7); Neutrophils % 77.2 % (38.7-73.9); Platelet Count 208 T/CUMM (130-400); Red Blood Count 4.04 MC/CUMM (3.8-5.5); Red Cell Distribution Width 13.6 % (9.3-17.3); White Blood Count 7.4 T/CUMM (4-12)
[2021-10-04 05:41] LABS: Calcium 8.5 MG/DL (8.5-10.1); Osmolality,Calculated 283.1 MOS/KG (273-304); Potassium 4.1 MMOL/L (3.5-5.1)
[2021-10-04 07:13] LABS: Band Neutrophils 14 % (0-10); Eosinophils 3 % (0-10); Lymphocytes 16 % (20-55); Platelet Estimate Normal; Segmented Neutrophils 57 % (50-85); Total Cells Counted 100
[2021-10-04 07:15] LABS: Macrocytosis 1+
[2021-10-04] MEDS: ASPIRIN EC 81 MG TABLET PO SCH (10:04)
[2021-10-04] MEDS: METOPROLOL TARTRATE 25 MG TABLET PO SCH ×2 (10:05→21:35)
[2021-10-04] MEDS: TICAGRELOR 90 MG TABLET PO SCH ×2 (10:05→21:35)
[2021-10-04] MEDS: PANTOPRAZOLE 40 MG TABLET PO SCH (10:05)
[2021-10-04] MEDS: APIXABAN 5 MG TABLET PO SCH (10:05)
[2021-10-04] MEDS ORDERED: LEVALBUTEROL 1.25 MG/3 ML NEB RESP TX ONE (11:33)
[2021-10-04] MEDS ORDERED: SODIUM CHLORIDE 0.9% 1,000 ML IV SCH (13:00)
[2021-10-04] MEDS: LEVALBUTEROL 1.25 MG/3 ML NEB RESP TX SCH ×2 (13:57→19:40)
[2021-10-04] MEDS: AMIODARONE INJ 450 MG in DEXTROSE 5% 241 ML IV SCH (14:08)
[2021-10-04] MEDS: AMIODARONE 200 MG TABLET PO SCH ×2 (14:39→21:35)
[2021-10-04] MEDS: ASCORBIC ACID 500 MG TABLET PO SCH (21:35)
[2021-10-05] MEDS: LEVALBUTEROL 1.25 MG/3 ML NEB RESP TX SCH ×4 (02:03→19:15)
[2021-10-05 06:42] LABS: Basophils % 0.3 % (0.0-0.8); Eosinophils # 0.1 10*3/uL (0.0-0.87); Eosinophils % 1.3 % (0.00-10.9); Hemoglobin 12.2 GM/DL (14.0-18.0); Immature Granulocytes % 0.4 %; Immature Granulocytes Absolute 0.03 #; Lymphocytes # 1.4 10*3/uL (1.4-4.0); Lymphocytes % 19.9 % (21.2-54.2); Mean Corpuscular HGB Conc 32.1 GM/DL (32-36); Mean Corpuscular Volume 100.5 FL (87-102); Mean Platelet Volume 9.7 FL (9.6-12.0); Neutrophils % 67.1 % (38.7-73.9); Platelet Count 198 T/CUMM (130-400); Red Blood Count 3.78 MC/CUMM (3.8-5.5); Red Cell Distribution Width 13.8 % (9.3-17.3); White Blood Count 7.2 T/CUMM (4-12)
[2021-10-05 07:29] LABS: Calcium 8.6 MG/DL (8.5-10.1); Osmolality,Calculated 278.4 MOS/KG (273-304); Potassium 3.9 MMOL/L (3.5-5.1)
[2021-10-05] MEDS: ASCORBIC ACID 500 MG TABLET PO SCH ×2 (09:00→21:55)
[2021-10-05] MEDS: METOPROLOL TARTRATE 25 MG TABLET PO SCH ×2 (09:00→21:55)
[2021-10-05] MEDS: AMIODARONE 200 MG TABLET PO SCH ×2 (09:00→21:55)
[2021-10-05] MEDS ORDERED: FUROSEMIDE 40 MG/4 ML VIAL IV ONE (10:00)
[2021-10-05] MEDS ORDERED: KETAMINE 500 MG/10 ML VIAL ONE (10:50)
[2021-10-05] MEDS ORDERED: AMIODARONE 200 MG TABLET PO ONE (11:59)
[2021-10-05] MEDS ORDERED: SODIUM CHLORIDE 0.9% 1,000 ML IV SCH (12:30)
[2021-10-05] MEDS ORDERED: PHENYLEPHRINE 1 MG/10 ML SYRINGE IV ONE (12:31)
[2021-10-05] MEDS ORDERED: propofoL 200 MG/20 ML VIAL IV ONE (12:31)
[2021-10-05] MEDS ORDERED: LIDOCAINE 2% 5 ML VIAL ONE (12:31)
[2021-10-05] MEDS ORDERED: GLYCOPYRROLATE 0.4 MG/2 ML VIAL ONE (12:31)
[2021-10-05] MEDS: PANTOPRAZOLE 40 MG TABLET PO SCH (15:01)
[2021-10-05] MEDS: TICAGRELOR 90 MG TABLET PO SCH ×2 (15:01→21:55)
[2021-10-05] MEDS: CEFEPIME 1,000 MG in SODIUM CHLORIDE 0.9% 100 ML IV SCH ×2 (15:02→21:55)
[2021-10-05] MEDS: ATORVASTATIN 40 MG TABLET PO SCH (21:55)
[2021-10-05] MEDS: APIXABAN 5 MG TABLET PO SCH (21:55)
[2021-10-06] MEDS: LEVALBUTEROL 1.25 MG/3 ML NEB RESP TX SCH ×4 (00:30→20:35)
[2021-10-06] MEDS: CEFEPIME 1,000 MG in SODIUM CHLORIDE 0.9% 100 ML IV SCH ×4 (01:51→21:53)
[2021-10-06 04:26] LABS: Basophils % 0.2 % (0.0-0.8); Eosinophils # 0.1 10*3/uL (0.0-0.87); Eosinophils % 0.7 % (0.00-10.9); Hematocrit 39.5 VOL% (42.0-52.0); Hemoglobin 12.5 GM/DL (14.0-18.0); Immature Granulocytes % 0.7 %; Immature Granulocytes Absolute 0.08 #; Lymphocytes % 8.8 % (21.2-54.2); Mean Corpuscular HGB Conc 31.6 GM/DL (32-36); Mean Corpuscular Volume 101.5 FL (87-102); Mean Platelet Volume 9.5 FL (9.6-12.0); Monocytes % 9.7 % (1.7-12.7); Neutrophils % 79.9 % (38.7-73.9); Platelet Count 204 T/CUMM (130-400); Red Blood Count 3.89 MC/CUMM (3.8-5.5); Red Cell Distribution Width 13.7 % (9.3-17.3); White Blood Count 11.2 T/CUMM (4-12)
[2021-10-06 04:52] LABS: Calcium 8.4 MG/DL (8.5-10.1); Osmolality,Calculated 275.8 MOS/KG (273-304)
[2021-10-06 04:53] LABS: Band Neutrophils 1 % (0-10); Hypochromia 1+; Lymphocytes 10 % (20-55); Microcytosis 1+; Ovalocytes Slight; Platelet Estimate Normal; Segmented Neutrophils 80 % (50-85); Total Cells Counted 100
[2021-10-06] MEDS: AMIODARONE 200 MG TABLET PO SCH ×2 (09:39→21:54)
[2021-10-06] MEDS: TICAGRELOR 90 MG TABLET PO SCH ×2 (09:39→21:54)
[2021-10-06] MEDS: PANTOPRAZOLE 40 MG TABLET PO SCH (09:39)
[2021-10-06] MEDS: ASCORBIC ACID 500 MG TABLET PO SCH ×2 (09:39→21:54)
[2021-10-06] MEDS: APIXABAN 5 MG TABLET PO SCH ×2 (09:39→21:37)
[2021-10-06] MEDS: METOPROLOL TARTRATE 25 MG TABLET PO SCH (09:39)
[2021-10-06] MEDS ORDERED: FUROSEMIDE 20 MG/2 ML VIAL IV ONE ×2 (10:02→12:09)
[2021-10-06] MEDS ORDERED: FUROSEMIDE 40 MG TABLET PO SCH (16:00)
[2021-10-06] MEDS ORDERED: METOPROLOL TARTRATE 25 MG TABLET PO SCH (21:00)
[2021-10-06] MEDS: ATORVASTATIN 40 MG TABLET PO SCH (21:54)
[2021-10-07] MEDS: LEVALBUTEROL 1.25 MG/3 ML NEB RESP TX SCH ×4 (01:11→21:15)
[2021-10-07] MEDS: CEFEPIME 1,000 MG in SODIUM CHLORIDE 0.9% 100 ML IV SCH ×4 (02:32→20:54)
[2021-10-07 04:29] LABS: Basophils % 0.2 % (0.0-0.8); Eosinophils # 0.1 10*3/uL (0.0-0.87); Eosinophils % 1.1 % (0.00-10.9); Hematocrit 35.8 VOL% (42.0-52.0); Hemoglobin 11.6 GM/DL (14.0-18.0); Immature Granulocytes % 0.6 %; Immature Granulocytes Absolute 0.05 #; Lymphocytes # 1.3 10*3/uL (1.4-4.0); Lymphocytes % 15.2 % (21.2-54.2); Mean Corpuscular HGB Conc 32.4 GM/DL (32-36); Mean Corpuscular Volume 98.6 FL (87-102); Mean Platelet Volume 9.6 FL (9.6-12.0); Monocytes % 11.1 % (1.7-12.7); Neutrophils % 71.8 % (38.7-73.9); Platelet Count 167 T/CUMM (130-400); Red Blood Count 3.63 MC/CUMM (3.8-5.5); Red Cell Distribution Width 13.6 % (9.3-17.3); White Blood Count 8.8 T/CUMM (4-12)
[2021-10-07 04:52] LABS: Calcium 8.7 MG/DL (8.5-10.1); Potassium 3.7 MMOL/L (3.5-5.1)
[2021-10-07] MEDS ORDERED: MAGNESIUM SULF RIDER 4 GM/100 ML PREMIX IV PRN (06:52)
[2021-10-07] MEDS ORDERED: MAGNESIUM SULF RIDER 2 GM/50 ML PREMIX IV PRN (06:52)
[2021-10-07] MEDS: ASCORBIC ACID 500 MG TABLET PO SCH ×2 (08:15→20:35)
[2021-10-07] MEDS: APIXABAN 5 MG TABLET PO SCH ×2 (08:15→20:45)
[2021-10-07] MEDS: AMIODARONE 200 MG TABLET PO SCH ×2 (08:15→20:35)
[2021-10-07] MEDS: TICAGRELOR 90 MG TABLET PO SCH ×2 (08:15→20:35)
[2021-10-07] MEDS: PANTOPRAZOLE 40 MG TABLET PO SCH (08:15)
[2021-10-07] MEDS ORDERED: FUROSEMIDE 20 MG/2 ML VIAL IV ONE ×2 (09:46→11:18)
[2021-10-07] MEDS: ATORVASTATIN 40 MG TABLET PO SCH (20:35)
[2021-10-07] MEDS: MUPIROCIN 2% OINT 22 GM TUBE TOP SCH (20:35)
[2021-10-08] MEDS: LEVALBUTEROL 1.25 MG/3 ML NEB RESP TX SCH ×4 (01:00→19:00)
[2021-10-08] MEDS: CEFEPIME 1,000 MG in SODIUM CHLORIDE 0.9% 100 ML IV SCH ×3 (02:48→14:53)
[2021-10-08 05:02] LABS: Basophils % 0.5 % (0.0-0.8); Eosinophils # 0.1 10*3/uL (0.0-0.87); Eosinophils % 1.3 % (0.00-10.9); Hematocrit 33.6 VOL% (42.0-52.0); Hemoglobin 10.9 GM/DL (14.0-18.0); Immature Granulocytes % 0.7 %; Immature Granulocytes Absolute 0.06 #; Lymphocytes # 1.2 10*3/uL (1.4-4.0); Lymphocytes % 14.1 % (21.2-54.2); Mean Corpuscular HGB Conc 32.4 GM/DL (32-36); Mean Platelet Volume 9.4 FL (9.6-12.0); Neutrophils % 72.4 % (38.7-73.9); Platelet Count 165 T/CUMM (130-400); Red Blood Count 3.43 MC/CUMM (3.8-5.5); Red Cell Distribution Width 13.4 % (9.3-17.3); White Blood Count 8.8 T/CUMM (4-12)
[2021-10-08 05:29] LABS: Potassium 3.5 MMOL/L (3.5-5.1)
[2021-10-08 05:31] LABS: Calcium 8.6 MG/DL (8.5-10.1); Osmolality,Calculated 279.5 MOS/KG (273-304); Potassium 3.6 MMOL/L (3.5-5.1)
[2021-10-08] MEDS ORDERED: MAGNESIUM SULF RIDER 4 GM/100 ML PREMIX IV ONE (07:32)
[2021-10-08] MEDS ORDERED: FUROSEMIDE 40 MG/4 ML VIAL IV ONE ×2 (08:03→16:00)
[2021-10-08] MEDS: ASCORBIC ACID 500 MG TABLET PO SCH ×2 (09:39→21:40)
[2021-10-08] MEDS: PANTOPRAZOLE 40 MG TABLET PO SCH (09:39)
[2021-10-08] MEDS: APIXABAN 5 MG TABLET PO SCH ×2 (09:39→21:41)
[2021-10-08] MEDS: AMIODARONE 200 MG TABLET PO SCH ×2 (09:39→21:41)
[2021-10-08] MEDS: TICAGRELOR 90 MG TABLET PO SCH ×2 (09:39→21:41)
[2021-10-08] MEDS: MUPIROCIN 2% OINT 22 GM TUBE TOP SCH ×2 (09:45→21:41)
[2021-10-08] MEDS: ATORVASTATIN 40 MG TABLET PO SCH (21:40)
[2021-10-08] MEDS: CEFUROXIME 500 MG TABLET PO SCH (21:41)
[2021-10-09] MEDS: LEVALBUTEROL 1.25 MG/3 ML NEB RESP TX SCH ×4 (01:29→20:10)
[2021-10-09 04:24] LABS: Basophils % 0.3 % (0.0-0.8); Eosinophils # 0.2 10*3/uL (0.0-0.87); Eosinophils % 2.5 % (0.00-10.9); Hematocrit 33.1 VOL% (42.0-52.0); Hemoglobin 10.7 GM/DL (14.0-18.0); Immature Granulocytes % 0.3 %; Immature Granulocytes Absolute 0.02 #; Lymphocytes # 1.1 10*3/uL (1.4-4.0); Lymphocytes % 16.5 % (21.2-54.2); Mean Corpuscular HGB Conc 32.3 GM/DL (32-36); Mean Corpuscular Volume 98.2 FL (87-102); Mean Platelet Volume 9.5 FL (9.6-12.0); Monocytes % 9.5 % (1.7-12.7); Neutrophils % 70.9 % (38.7-73.9); Platelet Count 177 T/CUMM (130-400); Red Blood Count 3.37 MC/CUMM (3.8-5.5); Red Cell Distribution Width 13.2 % (9.3-17.3); White Blood Count 6.9 T/CUMM (4-12)
[2021-10-09 04:49] LABS: Calcium 8.5 MG/DL (8.5-10.1); Osmolality,Calculated 274.8 MOS/KG (273-304); Potassium 3.4 MMOL/L (3.5-5.1)
[2021-10-09 06:56] LABS: Anisocytosis 1+; Platelet Estimate Adequate
[2021-10-09] MEDS ORDERED: POTASSIUM CHLORIDE 20 MEQ TABLET PO ONE (07:48)
[2021-10-09] MEDS: AMIODARONE 200 MG TABLET PO SCH ×2 (09:06→20:00)
[2021-10-09] MEDS: CEFUROXIME 500 MG TABLET PO SCH ×2 (09:06→20:00)
[2021-10-09] MEDS: ASCORBIC ACID 500 MG TABLET PO SCH ×2 (09:06→20:00)
[2021-10-09] MEDS: APIXABAN 5 MG TABLET PO SCH ×2 (09:06→20:00)
[2021-10-09] MEDS: PANTOPRAZOLE 40 MG TABLET PO SCH (09:06)
[2021-10-09] MEDS: TICAGRELOR 90 MG TABLET PO SCH ×2 (09:06→20:01)
[2021-10-09] MEDS: MUPIROCIN 2% OINT 22 GM TUBE TOP SCH ×2 (09:07→20:02)
[2021-10-09] MEDS: ATORVASTATIN 40 MG TABLET PO SCH (20:00)
[2021-10-10] MEDS: LEVALBUTEROL 1.25 MG/3 ML NEB RESP TX SCH ×4 (00:45→21:09)
[2021-10-10 05:45] LABS: Basophils % 0.2 % (0.0-0.8); Eosinophils # 0.1 10*3/uL (0.0-0.87); Eosinophils % 1.5 % (0.00-10.9); Hematocrit 35.7 VOL% (42.0-52.0); Hemoglobin 11.4 GM/DL (14.0-18.0); Immature Granulocytes % 0.7 %; Immature Granulocytes Absolute 0.06 #; Lymphocytes % 11.8 % (21.2-54.2); Mean Corpuscular HGB Conc 31.9 GM/DL (32-36); Mean Corpuscular Volume 98.9 FL (87-102); Mean Platelet Volume 9.3 FL (9.6-12.0); Neutrophils % 76.8 % (38.7-73.9); Platelet Count 203 T/CUMM (130-400); Red Blood Count 3.61 MC/CUMM (3.8-5.5); Red Cell Distribution Width 13.2 % (9.3-17.3); White Blood Count 8.8 T/CUMM (4-12)
[2021-10-10 06:14] LABS: Calcium 8.9 MG/DL (8.5-10.1); Osmolality,Calculated 274.8 MOS/KG (273-304); Potassium 3.8 MMOL/L (3.5-5.1)
[2021-10-10 06:26] LABS: Folate 14.56 NG/ML (5.38-24.0); Vitamin B12 375 PG/ML (211-911)
[2021-10-10 06:28] LABS: % Iron Saturation 10.8 % (18-50); Ferritin 197.6 ng/mL (26-388)
[2021-10-10 06:53] LABS: Sedimentation Rate-Westergren 95 MM/HR (0-20)
[2021-10-10] MEDS ORDERED: SODIUM CHLORIDE 0.65% NASAL SPRAY 45 ML BOTTLE BOTH NARES PRN (09:08)
[2021-10-10] MEDS: TICAGRELOR 90 MG TABLET PO SCH ×2 (09:23→20:53)
[2021-10-10] MEDS: ASCORBIC ACID 500 MG TABLET PO SCH ×2 (09:23→20:53)
[2021-10-10] MEDS: CYANOCOBALAMIN 500 MCG TABLET PO SCH (09:23)
[2021-10-10] MEDS: PANTOPRAZOLE 40 MG TABLET PO SCH (09:23)
[2021-10-10] MEDS: FERROUS SULFATE 325 MG TABLET PO SCH ×2 (09:23→16:27)
[2021-10-10] MEDS: AMIODARONE 200 MG TABLET PO SCH ×2 (09:23→20:53)
[2021-10-10] MEDS: CHOLECALCIFEROL 1,000 UNIT TABLET PO SCH (09:23)
[2021-10-10] MEDS: APIXABAN 5 MG TABLET PO SCH (09:23)
[2021-10-10] MEDS: MUPIROCIN 2% OINT 22 GM TUBE TOP SCH ×2 (09:24→20:53)
[2021-10-10] MEDS: ATORVASTATIN 40 MG TABLET PO SCH (20:53)
[2021-10-11] MEDS: LEVALBUTEROL 1.25 MG/3 ML NEB RESP TX SCH ×2 (01:58→07:56)
[2021-10-11 05:11] LABS: Basophils % 0.4 % (0.0-0.8); Eosinophils # 0.1 10*3/uL (0.0-0.87); Eosinophils % 1.5 % (0.00-10.9); Hematocrit 36.7 VOL% (42.0-52.0); Hemoglobin 11.7 GM/DL (14.0-18.0); Immature Granulocytes % 0.5 %; Immature Granulocytes Absolute 0.04 #; Lymphocytes # 1.4 10*3/uL (1.4-4.0); Lymphocytes % 17.5 % (21.2-54.2); Mean Corpuscular HGB Conc 31.9 GM/DL (32-36); Mean Corpuscular Volume 98.7 FL (87-102); Mean Platelet Volume 9.3 FL (9.6-12.0); Monocytes % 10.4 % (1.7-12.7); Neutrophils % 69.7 % (38.7-73.9); Platelet Count 205 T/CUMM (130-400); Red Blood Count 3.72 MC/CUMM (3.8-5.5); Red Cell Distribution Width 13.1 % (9.3-17.3); White Blood Count 8.1 T/CUMM (4-12)
[2021-10-11 05:27] LABS: Calcium 8.7 MG/DL (8.5-10.1); Osmolality,Calculated 273.7 MOS/KG (273-304); Potassium 4.4 MMOL/L (3.5-5.1)
[2021-10-11] MEDS ORDERED: POTASSIUM CHLORIDE RIDER 10 MEQ/100 ML PREMIX IV PRN (10:10)
[2021-10-11] MEDS ORDERED: MAGNESIUM SULF RIDER 2 GM/50 ML PREMIX IV PRN (10:10)
[2021-10-11] MEDS: MUPIROCIN 2% OINT 22 GM TUBE TOP SCH ×2 (10:59→21:06)
[2021-10-11] MEDS: FERROUS SULFATE 325 MG TABLET PO SCH ×2 (10:59→16:20)
[2021-10-11] MEDS: TICAGRELOR 90 MG TABLET PO SCH ×2 (11:00→21:06)
[2021-10-11] MEDS: PANTOPRAZOLE 40 MG TABLET PO SCH (11:00)
[2021-10-11] MEDS: ASCORBIC ACID 500 MG TABLET PO SCH ×2 (11:00→21:06)
[2021-10-11] MEDS: CYANOCOBALAMIN 500 MCG TABLET PO SCH (11:00)
[2021-10-11] MEDS: CHOLECALCIFEROL 1,000 UNIT TABLET PO SCH (11:00)
[2021-10-11] MEDS: AMIODARONE 200 MG TABLET PO SCH ×2 (11:00→21:06)
[2021-10-11] MEDS ORDERED: LEVALBUTEROL 1.25 MG/3 ML NEB RESP TX ONE (18:58)
[2021-10-11] MEDS: ATORVASTATIN 40 MG TABLET PO SCH (21:06)
[2021-10-12] MEDS ORDERED: DIAZEPAM 5 MG TABLET PO ONE (06:00)
[2021-10-12] MEDS ORDERED: SODIUM CHLORIDE 0.9% 1,000 ML IV SCH (06:00)
[2021-10-12] MEDS ORDERED: diphenhydrAMINE CAP 50 MG CAPSULE PO ONE (06:00)
[2021-10-12] MEDS: CYANOCOBALAMIN 500 MCG TABLET PO SCH (09:16)
[2021-10-12] MEDS: FERROUS SULFATE 325 MG TABLET PO SCH ×2 (09:16→16:22)
[2021-10-12] MEDS: ASCORBIC ACID 500 MG TABLET PO SCH ×2 (09:17→20:43)
[2021-10-12] MEDS: AMIODARONE 200 MG TABLET PO SCH (09:17)
[2021-10-12] MEDS: PANTOPRAZOLE 40 MG TABLET PO SCH (09:17)
[2021-10-12] MEDS: TICAGRELOR 90 MG TABLET PO SCH ×2 (09:17→20:43)
[2021-10-12] MEDS: CHOLECALCIFEROL 1,000 UNIT TABLET PO SCH (09:17)
[2021-10-12] MEDS: MUPIROCIN 2% OINT 22 GM TUBE TOP SCH ×2 (09:18→20:45)
[2021-10-12] MEDS ORDERED: HEPARIN/NACL 0.9% 2 UNITS/ML 2,000 UNIT/1,000 ML BAG IV ONE (10:12)
[2021-10-12] MEDS ORDERED: LIDOCAINE 1% 20 ML VIAL ONE (10:12)
[2021-10-12] MEDS ORDERED: HEPARIN/NACL 0.9% 2 UNITS/ML 1,000 UNIT/500 ML BAG IV ONE (10:22)
[2021-10-12] MEDS ORDERED: MIDAZOLAM 2 MG/2 ML VIAL ONE (10:28)
[2021-10-12] MEDS ORDERED: fentaNYL 100 MCG/2 ML VIAL ONE (10:29)
[2021-10-12] MEDS: FUROSEMIDE 20 MG/2 ML VIAL IV SCH (16:22)
[2021-10-12] MEDS: ATORVASTATIN 40 MG TABLET PO SCH (20:42)
[2021-10-13 07:12] LABS: Basophils % 0.4 % (0.0-0.8); Eosinophils # 0.1 10*3/uL (0.0-0.87); Eosinophils % 1.5 % (0.00-10.9); Hemoglobin 11.8 GM/DL (14.0-18.0); Immature Granulocytes % 0.6 %; Immature Granulocytes Absolute 0.04 #; Lymphocytes # 1.1 10*3/uL (1.4-4.0); Lymphocytes % 16.9 % (21.2-54.2); Mean Corpuscular HGB Conc 31.9 GM/DL (32-36); Mean Corpuscular Volume 96.6 FL (87-102); Mean Platelet Volume 8.6 FL (9.6-12.0); Monocytes % 10.5 % (1.7-12.7); Neutrophils % 70.1 % (38.7-73.9); Platelet Count 255 T/CUMM (130-400); Red Blood Count 3.83 MC/CUMM (3.8-5.5); Red Cell Distribution Width 13.1 % (9.3-17.3); White Blood Count 6.7 T/CUMM (4-12)
[2021-10-13 07:25] LABS: Osmolality,Calculated 276.8 MOS/KG (273-304); Potassium 4.3 MMOL/L (3.5-5.1)
[2021-10-13] MEDS: CHOLECALCIFEROL 1,000 UNIT TABLET PO SCH (09:12)
[2021-10-13] MEDS: TICAGRELOR 90 MG TABLET PO SCH ×2 (09:12→20:28)
[2021-10-13] MEDS: FUROSEMIDE 20 MG/2 ML VIAL IV SCH ×2 (09:13→17:48)
[2021-10-13] MEDS: ASCORBIC ACID 500 MG TABLET PO SCH ×2 (09:13→20:28)
[2021-10-13] MEDS: CYANOCOBALAMIN 500 MCG TABLET PO SCH (09:13)
[2021-10-13] MEDS: APIXABAN 5 MG TABLET PO SCH ×2 (09:13→20:28)
[2021-10-13] MEDS: PANTOPRAZOLE 40 MG TABLET PO SCH (09:13)
[2021-10-13] MEDS: FERROUS SULFATE 325 MG TABLET PO SCH ×2 (09:13→17:48)
[2021-10-13] MEDS: MUPIROCIN 2% OINT 22 GM TUBE TOP SCH ×2 (09:14→20:29)
[2021-10-13] MEDS: METOPROLOL TARTRATE 25 MG TABLET PO SCH (12:43)
[2021-10-13] MEDS: ATORVASTATIN 40 MG TABLET PO SCH (20:28)
[2021-10-14 05:12] LABS: Basophils % 0.6 % (0.0-0.8); Eosinophils # 0.1 10*3/uL (0.0-0.87); Eosinophils % 1.3 % (0.00-10.9); Hematocrit 38.2 VOL% (42.0-52.0); Hemoglobin 12.2 GM/DL (14.0-18.0); Immature Granulocytes % 0.9 %; Immature Granulocytes Absolute 0.06 #; Lymphocytes # 1.6 10*3/uL (1.4-4.0); Lymphocytes % 22.5 % (21.2-54.2); Mean Corpuscular HGB Conc 31.9 GM/DL (32-36); Mean Platelet Volume 9.1 FL (9.6-12.0); Monocytes % 10.4 % (1.7-12.7); Neutrophils % 64.3 % (38.7-73.9); Platelet Count 275 T/CUMM (130-400); Red Blood Count 3.94 MC/CUMM (3.8-5.5); White Blood Count 6.9 T/CUMM (4-12)
[2021-10-14 05:29] LABS: Calcium 8.8 MG/DL (8.5-10.1); Osmolality,Calculated 279.5 MOS/KG (273-304); Potassium 3.9 MMOL/L (3.5-5.1)
[2021-10-14] MEDS ORDERED: FUROSEMIDE 20 MG TABLET PO SCH (08:14)
[2021-10-14] MEDS: FERROUS SULFATE 325 MG TABLET PO SCH (11:28)
[2021-10-14] MEDS: APIXABAN 5 MG TABLET PO SCH (11:33)
[2021-10-14] MEDS: METOPROLOL TARTRATE 25 MG TABLET PO SCH (11:33)
[2021-10-14] MEDS: TICAGRELOR 90 MG TABLET PO SCH (11:33)
[2021-10-14] MEDS: MUPIROCIN 2% OINT 22 GM TUBE TOP SCH (11:33)
[2021-10-14] MEDS: ASCORBIC ACID 500 MG TABLET PO SCH (11:34)
[2021-10-14] MEDS: PANTOPRAZOLE 40 MG TABLET PO SCH (11:34)
[2021-10-14] MEDS: CYANOCOBALAMIN 500 MCG TABLET PO SCH (11:34)
[2021-10-14] MEDS: CHOLECALCIFEROL 1,000 UNIT TABLET PO SCH (11:34)
[2021-10-14] MEDS: FUROSEMIDE 20 MG/2 ML VIAL IV SCH (11:50)
[2021-10-14 12:13] VITALS: BP 109/66
== END 2021-10-14 12:40 | disposition home health service (06) | DRG 280 ==
LOC: N.ED 13:12 → N.TELEN 16:11 → SUATTDRO 16:11 → N.TELEN 18:15
PROVIDERS: ADMIT Internal Medicine; ATTEND Hospitalist

== ENCOUNTER 2021-10-17 03:30 | Observation (INO) ==
[2021-10-17] MEDS ORDERED: METOPROLOL TARTRATE 5 MG/5 ML VIAL IV STA ×2 (04:36→07:40)
[2021-10-17] MEDS ORDERED: SODIUM CHLORIDE 0.9% 1,000 ML IV STA (04:37)
[2021-10-17 05:36] LABS: Basophils % 0.6 % (0.0-0.8); Eosinophils # 0.1 10*3/uL (0.0-0.87); Eosinophils % 1.4 % (0.00-10.9); Hematocrit 35.5 VOL% (42.0-52.0); Hemoglobin 11.5 GM/DL (14.0-18.0); Immature Granulocytes % 1.1 %; Immature Granulocytes Absolute 0.08 #; Lymphocytes # 1.6 10*3/uL (1.4-4.0); Lymphocytes % 22.8 % (21.2-54.2); Mean Corpuscular HGB Conc 32.4 GM/DL (32-36); Mean Corpuscular Volume 95.7 FL (87-102); Mean Platelet Volume 8.7 FL (9.6-12.0); Monocytes % 11.1 % (1.7-12.7); Platelet Count 314 T/CUMM (130-400); Red Blood Count 3.71 MC/CUMM (3.8-5.5); Red Cell Distribution Width 13.2 % (9.3-17.3)
[2021-10-17] MEDS ORDERED: GLUCAGON 1 MG VIAL IM PRN (07:35)
[2021-10-17] MEDS ORDERED: DOCUSATE SODIUM 100 MG CAPSULE PO PRN (07:35)
[2021-10-17] MEDS ORDERED: ACETAMINOPHEN 325 MG TABLET PO PRN (07:35)
[2021-10-17] MEDS ORDERED: hydrALAZINE 20 MG/1 ML VIAL IV PRN (07:35)
[2021-10-17] MEDS ORDERED: ALUMINUM/MAGNES/SIMETH MAX STR 30 ML UDCUP PO PRN (07:35)
[2021-10-17] MEDS ORDERED: ONDANSETRON 4 MG/2 ML VIAL IV PRN (07:35)
[2021-10-17] MEDS ORDERED: DEXTROSE 50% 25 GM/50 ML SYRINGE IV PRN (07:35)
[2021-10-17 07:50] LABS: Calcium 8.7 MG/DL (8.5-10.1); Osmolality,Calculated 278.4 MOS/KG (273-304); Potassium 4.5 MMOL/L (3.5-5.1)
[2021-10-17 08:07] LABS: Thyroid Stimulating Hormone 7.32 uIU/ml (0.358-3.74)
[2021-10-17] MEDS ORDERED: NITROGLYCERIN SL 0.4 MG TABLET SL PRN (09:47)
[2021-10-17] MEDS: APIXABAN 5 MG TABLET PO SCH ×2 (10:33→20:39)
[2021-10-17] MEDS: TICAGRELOR 90 MG TABLET PO SCH ×2 (10:33→20:39)
[2021-10-17] MEDS: METOPROLOL TARTRATE 25 MG TABLET PO SCH ×2 (10:33→20:38)
[2021-10-17] MEDS: PANTOPRAZOLE 40 MG TABLET PO SCH (10:33)
[2021-10-17] MEDS: INSULIN LISPRO 100 UNIT/ML SUBCUT SCH ×3 (13:00→20:39)
[2021-10-17] MEDS: ASCORBIC ACID 500 MG TABLET PO SCH ×2 (13:00→20:38)
[2021-10-17] MEDS: FUROSEMIDE 20 MG TABLET PO SCH (16:03)
[2021-10-17] MEDS ORDERED: SERTRALINE 25 MG TABLET PO SCH (21:00)
[2021-10-17] MEDS ORDERED: ATORVASTATIN 40 MG TABLET PO SCH (21:00)
[2021-10-18 05:21] LABS: Basophils # 0.1 10*3/uL (0.0-0.2); Basophils % 0.5 % (0.0-0.8); Eosinophils # 0.1 10*3/uL (0.0-0.87); Hematocrit 36.5 VOL% (42.0-52.0); Hemoglobin 11.4 GM/DL (14.0-18.0); Immature Granulocytes % 0.9 %; Immature Granulocytes Absolute 0.09 #; Lymphocytes % 20.5 % (21.2-54.2); Mean Corpuscular HGB Conc 31.2 GM/DL (32-36); Mean Corpuscular Volume 97.9 FL (87-102); Mean Platelet Volume 8.7 FL (9.6-12.0); Monocytes % 8.5 % (1.7-12.7); Neutrophils % 68.6 % (38.7-73.9); Platelet Count 310 T/CUMM (130-400); Red Blood Count 3.73 MC/CUMM (3.8-5.5); Red Cell Distribution Width 13.2 % (9.3-17.3); White Blood Count 9.6 T/CUMM (4-12)
[2021-10-18 05:43] LABS: Albumin 2.7 G/DL (3.4-5.0); Bilirubin,Total 0.5 MG/DL (0.20-1.00); Osmolality,Calculated 279.4 MOS/KG (273-304); Potassium 3.7 MMOL/L (3.5-5.1); Risk Ratio 3.23; Total Protein 6.1 G/DL (6.4-8.2); VLDL Cholesterol 17.2 MG/DL
[2021-10-18 07:53] VITALS: BP 94/58
[2021-10-18] MEDS: INSULIN LISPRO 100 UNIT/ML SUBCUT SCH (08:06)
[2021-10-18] MEDS: FUROSEMIDE 20 MG TABLET PO SCH (08:14)
[2021-10-18] MEDS: APIXABAN 5 MG TABLET PO SCH (08:14)
[2021-10-18] MEDS: TICAGRELOR 90 MG TABLET PO SCH (08:14)
[2021-10-18] MEDS: ASCORBIC ACID 500 MG TABLET PO SCH (08:14)
[2021-10-18] MEDS: PANTOPRAZOLE 40 MG TABLET PO SCH (08:14)
[2021-10-18] MEDS: METOPROLOL TARTRATE 25 MG TABLET PO SCH (08:14)
== END 2021-10-18 11:13 | disposition home or self-care (01) ==
LOC: N.EDINP 03:30 → N.ED 03:30 → N.TELES 11:45
PROVIDERS: ADMIT Internal Medicine; ATTEND Internal Medicine

== ENCOUNTER 2022-05-03 12:41 | Inpatient (IN) ==
[2022-05-03] MEDS ORDERED: AMIODARONE INJ 150 MG in DEXTROSE 5% 100 ML IV STA (12:53)
[2022-05-03 13:18] LABS: Basophils % 0.5 % (0.0-0.8); Eosinophils # 0.2 10*3/uL (0.0-0.87); Eosinophils % 2.2 % (0.00-10.9); Hematocrit 44.7 VOL% (42.0-52.0); Hemoglobin 14.5 GM/DL (14.0-18.0); Immature Granulocytes % 0.4 %; Immature Granulocytes Absolute 0.03 #; Lymphocytes % 25.1 % (21.2-54.2); Mean Corpuscular HGB Conc 32.4 GM/DL (32-36); Monocytes % 12.1 % (1.7-12.7); Neutrophils % 59.7 % (38.7-73.9); Platelet Count 191 T/CUMM (130-400); Red Blood Count 5.02 MC/CUMM (3.8-5.5); Red Cell Distribution Width 18.9 % (9.3-17.3); White Blood Count 8.1 T/CUMM (4-12)
[2022-05-03 13:30] LABS: INR 1.1; PT Patient Result 12.5 SECS (10.5-12.0)
[2022-05-03] MEDS: AMIODARONE INJ 450 MG in DEXTROSE 5% 241 ML IV SCH ×2 (13:41→22:16)
[2022-05-03] MEDS ORDERED: ONDANSETRON 4 MG/2 ML VIAL IV PRN (13:43)
[2022-05-03 14:01] LABS: Albumin 4.4 G/DL (3.4-5.0); Bilirubin,Total 0.8 MG/DL (0.20-1.00); Calcium 9.4 MG/DL (8.5-10.1); Osmolality,Calculated 283.3 MOS/KG (273-304); Potassium 3.8 MMOL/L (3.5-5.1); Thyroid Stimulating Hormone 5.23 uIU/ml (0.358-3.74); Total Protein 7.6 G/DL (6.4-8.2)
[2022-05-03] MEDS ORDERED: SODIUM CHLORIDE 0.45% 1,000 ML IV SCH (14:30)
[2022-05-03] MEDS ORDERED: HEPARIN/NACL 0.9% 2 UNITS/ML 3,000 UNIT/1,500 ML BAG IV ONE (15:40)
[2022-05-03 15:44] LABS: Free T4 (Free Thyroxine) 0.95 NG/DL (0.76-1.46)
[2022-05-03] MEDS ORDERED: fentaNYL 100 MCG/2 ML VIAL ONE (15:54)
[2022-05-03] MEDS ORDERED: MIDAZOLAM 2 MG/2 ML VIAL ONE (15:54)
[2022-05-03] MEDS: METOPROLOL TARTRATE 25 MG TABLET PO SCH (20:50)
[2022-05-03] MEDS: ASCORBIC ACID 500 MG TABLET PO SCH (20:51)
[2022-05-03] MEDS: ATORVASTATIN 40 MG TABLET PO SCH (20:51)
[2022-05-03] MEDS: ACETAMINOPHEN 325 MG TABLET PO PRN (21:17)
[2022-05-04 04:55] LABS: Basophils % 0.4 % (0.0-0.8); Eosinophils # 0.1 10*3/uL (0.0-0.87); Eosinophils % 1.9 % (0.00-10.9); Hematocrit 39.3 VOL% (42.0-52.0); Hemoglobin 12.7 GM/DL (14.0-18.0); Immature Granulocytes % 0.5 %; Immature Granulocytes Absolute 0.04 #; Lymphocytes % 13.2 % (21.2-54.2); Mean Corpuscular HGB Conc 32.3 GM/DL (32-36); Mean Corpuscular Volume 90.1 FL (87-102); Mean Platelet Volume 9.2 FL (9.6-12.0); Monocytes # 0.7 10*3/uL (0.11-0.8); Monocytes % 9.3 % (1.7-12.7); Neutrophils % 74.7 % (38.7-73.9); Platelet Count 156 T/CUMM (130-400); Red Blood Count 4.36 MC/CUMM (3.8-5.5); Red Cell Distribution Width 19.6 % (9.3-17.3); White Blood Count 7.6 T/CUMM (4-12)
[2022-05-04 05:12] LABS: Osmolality,Calculated 283.1 MOS/KG (273-304); Risk Ratio 2.77
[2022-05-04] MEDS ORDERED: NITROGLYCERIN SL 0.4 MG TABLET SL PRN (08:03)
[2022-05-04] MEDS: METOPROLOL TARTRATE 25 MG TABLET PO SCH ×2 (08:15→20:11)
[2022-05-04] MEDS: ASCORBIC ACID 500 MG TABLET PO SCH ×2 (08:16→20:11)
[2022-05-04] MEDS: PANTOPRAZOLE 40 MG TABLET PO SCH (08:16)
[2022-05-04] MEDS: CYANOCOBALAMIN 500 MCG TABLET PO SCH (08:16)
[2022-05-04] MEDS: CLOPIDOGREL 75 MG TABLET PO SCH (08:16)
[2022-05-04] MEDS: CHOLECALCIFEROL 1,000 UNIT TABLET PO SCH (08:16)
[2022-05-04] MEDS: DILTIAZEM CD 120 MG CAPSULE PO SCH (08:17)
[2022-05-04] MEDS ORDERED: APIXABAN 5 MG TABLET PO SCH (09:00)
[2022-05-04] MEDS: ACETAMINOPHEN 325 MG TABLET PO PRN ×2 (12:01→23:47)
[2022-05-04] MEDS: AMIODARONE 200 MG TABLET PO SCH ×2 (13:40→20:11)
[2022-05-04] MEDS: ATORVASTATIN 40 MG TABLET PO SCH (20:11)
[2022-05-05 05:24] LABS: Basophils % 0.3 % (0.0-0.8); Eosinophils # 0.2 10*3/uL (0.0-0.87); Eosinophils % 2.9 % (0.00-10.9); Hematocrit 41.9 VOL% (42.0-52.0); Hemoglobin 13.4 GM/DL (14.0-18.0); Immature Granulocytes % 0.3 %; Immature Granulocytes Absolute 0.02 #; Lymphocytes # 1.2 10*3/uL (1.4-4.0); Lymphocytes % 18.2 % (21.2-54.2); Mean Corpuscular Volume 90.5 FL (87-102); Mean Platelet Volume 9.3 FL (9.6-12.0); Monocytes # 0.6 10*3/uL (0.11-0.8); Neutrophils % 69.3 % (38.7-73.9); Platelet Count 158 T/CUMM (130-400); Red Blood Count 4.63 MC/CUMM (3.8-5.5); Red Cell Distribution Width 19.3 % (9.3-17.3); White Blood Count 6.8 T/CUMM (4-12)
[2022-05-05 05:27] LABS: Calcium 9.5 MG/DL (8.5-10.1); Osmolality,Calculated 279.4 MOS/KG (273-304); Potassium 3.8 MMOL/L (3.5-5.1)
[2022-05-05] MEDS ORDERED: DIAZEPAM 5 MG TABLET PO ONE (07:30)
[2022-05-05] MEDS ORDERED: ceFAZolin 1,000 MG VIAL IRRIG ONE (07:30)
[2022-05-05] MEDS ORDERED: diphenhydrAMINE CAP 50 MG CAPSULE PO ONE (07:30)
[2022-05-05] MEDS: DILTIAZEM CD 120 MG CAPSULE PO SCH (09:42)
[2022-05-05] MEDS: CHOLECALCIFEROL 1,000 UNIT TABLET PO SCH (09:43)
[2022-05-05] MEDS: PANTOPRAZOLE 40 MG TABLET PO SCH (09:43)
[2022-05-05] MEDS: ASCORBIC ACID 500 MG TABLET PO SCH ×2 (09:43→20:38)
[2022-05-05] MEDS: CYANOCOBALAMIN 500 MCG TABLET PO SCH (09:43)
[2022-05-05] MEDS: AMIODARONE 200 MG TABLET PO SCH (09:43)
[2022-05-05] MEDS: CLOPIDOGREL 75 MG TABLET PO SCH (09:43)
[2022-05-05] MEDS: METOPROLOL TARTRATE 25 MG TABLET PO SCH ×2 (09:44→20:38)
[2022-05-05 09:50] VITALS: BP 123/78
[2022-05-05] MEDS ORDERED: ceFAZolin 1,000 MG VIAL ONE ×2 (11:31→11:44)
[2022-05-05] MEDS ORDERED: LIDOCAINE 1%/EPI INJ 20 ML VIAL ONE ×2 (11:31→12:09)
[2022-05-05] MEDS ORDERED: TISSUE ADHESIVE 1 EACH APPLICATOR TOP ONE (11:47)
[2022-05-05] MEDS ORDERED: fentaNYL 100 MCG/2 ML VIAL ONE (12:44)
[2022-05-05] MEDS ORDERED: MIDAZOLAM 2 MG/2 ML VIAL ONE (12:44)
[2022-05-05] MEDS: ACETAMINOPHEN 325 MG TABLET PO PRN (15:24)
[2022-05-05] MEDS: ATORVASTATIN 40 MG TABLET PO SCH (20:38)
[2022-05-06] MEDS: ACETAMINOPHEN 325 MG TABLET PO PRN (05:31)
[2022-05-06] MEDS: METOPROLOL TARTRATE 25 MG TABLET PO SCH (09:37)
[2022-05-06] MEDS: PANTOPRAZOLE 40 MG TABLET PO SCH (09:37)
[2022-05-06] MEDS: CLOPIDOGREL 75 MG TABLET PO SCH (09:38)
[2022-05-06] MEDS: DILTIAZEM CD 120 MG CAPSULE PO SCH (09:38)
[2022-05-06] MEDS: ASCORBIC ACID 500 MG TABLET PO SCH (09:38)
[2022-05-06] MEDS: CHOLECALCIFEROL 1,000 UNIT TABLET PO SCH (09:38)
[2022-05-06] MEDS: CYANOCOBALAMIN 500 MCG TABLET PO SCH (09:42)
[2022-05-06] MEDS ORDERED: oxyCODONE/ACETAMINOPHEN 5-325 MG TABLET PO ONE (10:23)
== END 2022-05-06 10:58 | disposition home or self-care (01) | DRG 227 ==
LOC: N.ED 12:41 → N.EDINP 13:43 → N.CC 15:48
PROVIDERS: ADMIT Internal Medicine Cardiovascular Disease; ATTEND Internal Medicine Cardiovascular Disease
PROC: CLCCHCL (ICD-10-PCS; 2022-05-03 15:45)
PROC: CLDCICD (2022-05-05 12:15)